=== PATIENT | male | born 1945 ===

== ENCOUNTER 2018-06-26 08:37 | Day surgery (SDC) | payer MEDICARE, OTHER ==
[2018-06-25 14:08] VITALS: BMI 20.5
[2018-06-26] MEDS ORDERED: ceFAZolin IV 2 gm in Dextrose 2 GM/50 ML BAG IVPB SCH (10:00)
[2018-06-26] MEDS ORDERED: Lactated Ringer's 500 ML IV ONE (10:55)
[2018-06-26] MEDS ORDERED: Lactated Ringer's 500 ML IV SCH (11:45)
[2018-06-26 11:48] VITALS: TEMP 99.1
[2018-06-26] MEDS ORDERED: ceFAZolin 2 GM in Sodium Chloride 0.9% 100 ML IVPB ONE (12:00)
[2018-06-26 12:34] VITALS: O2SAT 97
[2018-06-26 13:09] VITALS: BP 118/61; PULSE 80; RESP 18
== END 2018-06-26 13:03 ==
LOC: C.ENDO 08:37
PROVIDERS: ATTEND Internal Medicine Gastroenterology
DX: R13.10 Dysphagia, unspecified (principal); R63.4 Abnormal weight loss; E11.9 Type 2 diabetes mellitus without complications; I11.0 Hypertensive heart disease with heart failure; I50.9 Heart failure, unspecified; J44.9 Chronic obstructive pulmonary disease, unspecified
CPT/HCPCS: 43246; 82948; J0690; J7120

== ENCOUNTER 2018-09-17 10:15 | Inpatient (IN) | payer MEDICARE, OTHER ==
[2018-09-17 10:15] VITALS: BMI 19.7
[2018-09-17 11:02] LABS: BASO % 0.3 % (0.0-2.0); EOS # 0.1 K/uL (0.0-0.7); EOS % 0.4 % (0.0-4.0); LYMPH # 0.2 K/uL (1.0-4.3); LYMPH % 1.4 % (20.0-40.0); MEAN CORPUSCULAR HEMOGLOBIN 26.7 pg (27.0-31.0); MEAN CORPUSCULAR HGB CONC 33.4 g/dL (33.0-37.0); MEAN PLATELET VOLUME 7.3 fL (7.2-11.7); MONO # 0.9 K/uL (0.0-0.8); MONO % 5.9 % (0.0-10.0); NEUT # 13.3 K/uL (1.8-7.0); RBC 3.48 Mil/uL (4.40-5.90); RED CELL DISTRIBUTION WIDTH 14.3 % (11.5-14.5); WHITE BLOOD COUNT 14.4 K/uL (4.8-10.8)
[2018-09-17 11:03] LABS: HEMOGLOBIN 9.3 g/dL (12.0-18.0)
[2018-09-17 11:04] LABS: PLATELET COUNT 258 K/uL (130-400)
[2018-09-17 11:11] LABS: INR 1.4; PROTHROMBIN TIME 14.8 SECONDS (9.7-12.2)
[2018-09-17 11:15] LABS: ALB/GLOB RATIO 0.9 (1.0-2.1); ALBUMIN 3.4 g/dL (3.5-5.0); ALT/SGPT 21 U/L (21-72); AST/SGOT 22 U/L (17-59); BLOOD UREA NITROGEN 28 mg/dL (9-20); CALCIUM 9.3 mg/dl (8.6-10.4); GFR NON-AFRICAN AMERICAN 46
[2018-09-17 11:26] LABS: CK-MB 1.01 ng/mL (0.0-3.38)
[2018-09-17 11:33] LABS: BANDS 1 % (0-2); LYMPHOCYTE 1 % (20-40); MONOCYTE 7 % (0-10); NEUTROPHIL 91 % (50-75); TOTAL CELLS COUNTED 100
[2018-09-17 11:34] LABS: HYPOCHROMIC SLIGHT; PLATELET ESTIMATE NORMAL (NORMAL)
--- NOTE | 2018-09-17 11:48 | CT ---
Date of service: 09/17/2018 PROCEDURE: CT HEAD WITHOUT CONTRAST. HISTORY: SYNCOPE/UNRESPONSIVE COMPARISON: None available. TECHNIQUE: Axial computed tomography images were obtained through the head/brain without intravenous contrast. Radiation dose: Total exam DLP = 1094.17 mGy-cm. This CT exam was performed using one or more of the following dose reduction techniques: Automated exposure control, adjustment of the mA and/or kV according to patient size, and/or use of iterative reconstruction technique. FINDINGS: HEMORRHAGE: No intracranial hemorrhage. BRAIN: Diffuse atrophy with prominence of the ventricles and sulci noted. No mass effect or edema. Dense intracranial atherosclerosis. Scattered chronic appearing bilateral basal ganglia type lacunar infarcts. Scattered periventricular and subcortical white matter hypodensities, which are nonspecific, but often seen with chronic microvascular ischemic disease. Please note that MRI with diffusion imaging is more sensitive in the detection of acute ischemic event. VENTRICLES: No hydrocephalus. CALVARIUM: Unremarkable. PARANASAL SINUSES: Unremarkable as visualized. No significant inflammatory changes. MASTOID AIR CELLS: Opacification of the right mastoid air cells. The left mastoid air cells appear clear. OTHER FINDINGS: None. IMPRESSION: Generalized atrophy. Nonspecific white matter changes. Chronic appearing bilateral lacunar type infarcts. Opacification right mastoid air cells; correlate clinically for mastoiditis.
--- NOTE | 2018-09-17 12:02 | C.PDOC ---
History Of Present Illness Patient sent from [place] for evaluation, was apparently found on the floor in the bathroom cyanotic and not breathing. Nurse apparently started bagging patient, and did suctions his trach and patient began breathing again. Patient has PMhx of laryngeal CA, tracheostomy, PEG tube placement, COPD, CHF, HTN, pneumonia. Patient does not remember what happened to him this morning. He is c/o abdominal pain located at PEG site; as per son PEG has been in for approx 1 month and patient has been c/o pain there recently. - HPI Time Seen by Provider: 09/17/18 10:28 Chief Complaint (Nursing): Trauma History Per: Patient, Family History/Exam Limitations: other (nonverbal) Past Medical History Reviewed: Historical Data, Nursing Documentation, Vital Signs Vital Signs: Last Vital Signs Temp 98 F 09/17/18 10:24 Pulse 75 09/17/18 11:49 Resp 14 09/17/18 11:49 BP 113/61 09/17/18 11:49 Pulse Ox 100 09/17/18 11:49 Primary Care Provider: Ada Harry R - Medical History PMH: Anxiety, CHF, COPD, Depression, Emphysema, Fractures (left rib fx in december 2017), HTN, Pneumonia - [facility] Procedures ASSISTANCE WITH RESPIRATORY VENTILATION, <24 HRS, CPAP (04/07/18) BYPASS TRACHEA TO CUTANEOUS WITH TRACH DEV, OPEN APPROACH (04/07/18) FLUOROSCOPY OF MOUTH/OROPHARYNX USING OTHER CONTRAST (04/07/18) Family History: States: No Known Family Hx - Social History Hx Alcohol Use: No Hx Substance Use: No - Immunization History Hx Tetanus Toxoid Vaccination: No Hx Influenza Vaccination: No Hx Pneumococcal Vaccination: No Review Of Systems Constitutional: Negative for: Fever, Chills Cardiovascular: Negative for: Chest Pain, Palpitations Respiratory: Positive for: Other (cyanosis). Negative for: Cough, Shortness of Breath Gastrointestinal: Positive for: Abdominal Pain. Negative for: Nausea, Vomiting Neurological: Negative for: Headache, Dizziness Physical Exam - Physical Exam Appears: Non-toxic, Chronically Ill Skin: Warm, Dry, Pale Head: Normacephalic Eye(s): bilateral: Normal Inspection, PERRL, EOMI Oral Mucosa: Moist Neck: Other (tracheotomy tube, no discharge/mucus plug noted) Cardiovascular: Rhythm Regular Respiratory: No Accessory Muscle Use, No Rales, No Rhonchi, No Wheezing, Other (coarse breath sounds B/L ) Gastrointestinal/Abdominal: Bowel Sounds, Soft, Tenderness ((+) TTP around left sided PEG), No Distention, No Guarding, No Rebound Extremity: Normal ROM, No Pedal Edema, No Calf Tenderness Neurological/Psych: Oriented x3 ED Course And Treatment - Laboratory Results Result Diagrams: 09/19/18 07:32 09/19/18 07:32 Lab Results: PT 14.8 SECONDS (9.7-12.2) H 09/17/18 10:58 INR 1.4 09/17/18 10:58 APTT 31.0 SECONDS (21-34) 09/17/18 10:58 Troponin I < 0.0120 ng/mL (0.00-0.120) 09/17/18 10:58 Total Bilirubin 0.7 mg/dL (0.2-1.3) 09/17/18 10:58 AST 22 U/L (17-59) 09/17/18 10:58 ALT 21 U/L (21-72) D 09/17/18 10:58 Alkaline Phosphatase 167 U/L (38-126) H 09/17/18 10:58 Total Protein 7.0 g/dL (6.3-8.3) 09/17/18 10:58 Albumin 3.4 g/dL (3.5-5.0) L 09/17/18 10:58 Globulin 3.6 gm/dL (2.2-3.9) 09/17/18 10:58 Albumin/Globulin Ratio 0.9 (1.0-2.1) L 09/17/18 10:58 ECG: Interpreted By Me, Viewed By Me (NSR 85 bpm, normal axis, RBBB, no acute ST changes) ECG Interpretation: No Acute Changes O2 Sat by Pulse Oximetry: 100 (RA) Pulse Ox Interpretation: Normal - Radiology CXR: Interpreted by Me, Viewed By Me CXR Interpretation: Yes: No Acute Disease, Other ((+) tracheostomy). No: Infiltrates - CT Scan/US CT HEAD Other Rad Studies (CT/US): Read By Radiologist, Radiology Report Reviewed CT/US Interpretation: Accession No. : [id number]. Patient Name / ID : PAULA CLARKE / [id number]. Exam Date : 09/17/2018 11:22:49 ( Approved ). Study Comment : Sex / Age : M / 72Y. Creator : Johanny Leigh. Dictator : Lorena Church MD. Art Museum Docent : Mixing Roll Operator : Lorena Church MD. Approver2 : Report Date : 09/17/2018 11:31:36. My Comment : . Date of service: 09/17/2018. PROCEDURE: CT HEAD WITHOUT CONTRAST. HISTORY: SYNCOPE/UNRESPONSIVE. COMPARISON: None available. TECHNIQUE: Axial computed tomography images were obtained through the head/brain without intravenous con trast. Radiation dose: Total exam DLP = 1094.17 mGy-cm. This CT exam was performed using one or more of the following dose reduction techniques: Automated exposure control, adjustment of the mA and/or kV according to patient size, and/or use of iterative reconstruction technique. FINDINGS: HEMORRHAGE: No intracranial hemorrhage. BRAIN: Diffuse atrophy with prominence of the ventricles and sulci noted. No mass effect or edema. Dense intracranial atherosclerosis. Scattered chronic appearing bilateral basal ganglia type lacunar infarcts. Scattered periventricular and subcortical white matter hypodensities, which are nonspecific, but often seen with chronic microvascular ischemic disease. Please note that MRI with diffusion imaging is more sensitive in the detection of acute ischemic event. VENTRICLES: No hydrocephalus. CALVARIUM: Unremarkable. PARANASAL SINUSES: Unremarkable as visualized. No significant inflammatory changes. MASTOID AIR CELLS: Opacification of the ri ght mastoid air cells. The left mastoid air cells appear clear. OTHER FINDINGS: None. IMPRESSION: Generalized atrophy. Nonspecific white matter changes. Chronic appearing bilateral lacunar type infarcts. Opacification right mastoid air cells; correlate clinically for mastoiditis. Progress Note: Blood work, EKG, CXR, UA, CT head ordered and reviewed. Patient given IV NS bolus, IV zosyn (for possible aspiration PNA). - Physician Consult Information Physician Contacted: Jose Harry Outcome Of Conversation: Discussed patient with Dr. Harry, agrees with admissioj to his service for collapse at [place] - mucus plus vs syncope, possible aspiration PNA, leukocytosis, laryngeal CA, abdominal pain. He will follow CT abd/pelvis. Disposition - Disposition Disposition: HOSPITALIZED Disposition Time: 12:21 Condition: STABLE - Clinical Impression Clinical Impression: Abdominal pain, Laryngeal cancer, Collapse, Leukocytosis, Aspiration pneumonia Decision To Admit - Pt Status Changed To: Hospital Disposition Of: Inpatient - Admit Certification Admit to Inpatient:: After my assessment, the patient will require hospitalization for at least two midnights. This is because of the severity of symptoms shown, intensity of services needed, and/or the medical risk in this patient being treated as an outpatient. - InPatient: Physician Admission Certification: I certify that this patient requires 2 or more midnights of care for the following reason:: see notes - . Bed Request Type: Telemetry Admitting Physician: Jose Harry Patient Diagnosis: Leukocytosis, Laryngeal cancer, Abdominal pain, Collapse, Aspiration pneumonia
[2018-09-17] MEDS ORDERED: Piperacillin/Tazobact 3.375 gm 100 ML IV STA (12:18)
[2018-09-17] MEDS ORDERED: Iohexol 240 (50 ml) PO STA (12:23)
[2018-09-17] MEDS ORDERED: Sodium Chloride 0.9% 500 ML IV ONE (12:23)
[2018-09-17] MEDS ORDERED: Iohexol 240 (50 ml) ONE (13:01)
[2018-09-17] MEDS ORDERED: Piperacillin/Tazobact 3.375 gm 100 ML IVPB ONE (13:02)
--- NOTE | 2018-09-17 15:48 | RAD ---
Date of service: 09/17/2018 PROCEDURE: CHEST RADIOGRAPH, 1 VIEW HISTORY: POSSIBLE SYNCOPE COMPARISON: None available. FINDINGS: LUNGS: Clear. PLEURA: No pneumothorax or pleural fluid seen. CARDIOVASCULAR: Atherosclerotic calcifications identified primarily aortic arch. No radiographic findings to suggest acute or significant cardiovascular disease. OSSEOUS STRUCTURES: No significant abnormalities. VISUALIZED UPPER ABDOMEN: Normal. OTHER FINDINGS: Satisfactory position of tracheostomy device. IMPRESSION: No active disease.
[2018-09-17] MEDS ORDERED: Acetaminophen 650mg/20.3ml solution UD GT PRN (15:51)
[2018-09-17] MEDS ORDERED: Albuterol-Ipratrop 3 mg / 0.5 (3 ml) UD IH SCH (16:00)
--- NOTE | 2018-09-17 16:17 | CP.PCM.CON ---
<Nereida Tang - Last Filed: 09/17/18 18:01> History of Present Illness - History of Present Illness History of Present Illness: GI Fellow PGY5 Consult Note 72 year old male with medical history of COPD, CHF, HTN, DM, GERD, Laryngeal Carcinoma diagnosed 10 months ago s/p tracheostomy on chemoradiation therapy. Pt was initially seen by GI in the office 05/2018 for PEG placement due to poor po intake, dysphagia and weight loss. Pt was also found to have a nodular liver on Abd US and PET scan. No history of known cirrhosis or liver disease per pt, positive history of heavy alcohol abuse in the past. Denied jaundice, encephalopathy, ascites. Pt has lost unintentional 25lbs over 6months. Pt had a barium swallow evaluation 03/2018 with no aspiration at that time. Pt had a PEG placed 06/2018 with no complication. [facility], cyanotic with initiation of bag ventilation and started breathing. On presentation pt reports severe abdominal pain in LUQ. Per pt's family pt recently had pain medication increased and has chronic pain in left side due to rib fracture 1 yr ago after being hypoglycemic. Per pt's family he would have mild discomfort around PEG site but no issues with TF or severe abdominal pain. At the time of evaluation, PEG was a little hard to flush with resistance but no pain at site of peg, mostly LUQ around rib area. ROS: A 12pt ROS was negative except as above PmHx: As stated above PsHx: PEG, trach SHx: former smoker, drinker FH: Denies cancer Past Patient History - Infectious Disease Hx of Infectious Diseases: None - Past Medical History & Family History Past Medical History?: Yes - Past Social History Smoking Status: Current Some Days Smoker - CARDIAC Hx Cardiac Disorders: Yes Hx Congestive Heart Failure: Yes Hx Hypertension: Yes - PULMONARY Hx Respiratory Disorders: Yes Hx Chronic Obstructive Pulmonary Disease (COPD): Yes Hx Emphysema: Yes Hx Pneumonia: Yes - NEUROLOGICAL Hx Neurological Disorder: No Hx Seizures: No Hx Transient Ischemic Attacks (TIA): No - HEENT Hx HEENT Problems: Yes - RENAL Hx Chronic Kidney Disease: No - ENDOCRINE/METABOLIC Hx Endocrine Disorders: Yes Hx Diabetes Mellitus Type 1: Yes - HEMATOLOGICAL/ONCOLOGICAL Hx Cancer: Yes (LARYNX) Other/Comment: + Trach - INTEGUMENTARY Hx Dermatological Problems: No - MUSCULOSKELETAL/RHEUMATOLOGICAL Hx Musculoskeletal Disorders: Yes Hx Falls: Yes Hx Fractures: Yes (left rib fx in december 2017) - GASTROINTESTINAL Hx Gastrointestinal Disorders: Yes Hx Gastroesophageal Reflux: Yes - GENITOURINARY/GYNECOLOGICAL Hx Genitourinary Disorders: No - PSYCHIATRIC Hx Psychophysiologic Disorder: Yes Hx Anxiety: Yes Hx Depression: Yes Hx Substance Use: No - SURGICAL HISTORY Hx Surgeries: Yes Other/Comment: TRACHEOTOMY - ANESTHESIA Hx Anesthesia: Yes Hx Anesthesia Reactions: No Hx Malignant Hyperthermia: No Meds Allergies/Adverse Reactions: Allergies Allergy/AdvReac Type Severity Reaction Status Date / Time No Known Allergies Allergy Verified 06/26/18 09:51 - Medications Medications: Current Medications Acetaminophen (Tylenol 650mg/20.3ml Solution Ud) 650 mg GT Q6 PRN PRN Reason: Temperature Albuterol/Ipratropium (Duoneb 3 Mg/0.5 Mg (3 Ml) Ud) 3 ml IH Q6H DEMETRIUS Piperacillin Sod/Tazobactam Sod (Zosyn 3.375 Gm Iv Premix) 3.375 gm in 50 mls @ 100 mls/hr IVPB Q8 DEMETRIUS; Protocol Insulin Aspart (Novolog) 0 unit SC Q6 DEMETRIUS; Protocol Trazodone HCl (Desyrel) 25 mg PO HS DEMETRIUS Physical Exam - Constitutional Appears: Non-toxic, In Acute Distress, Cachectic, Chronically Ill - Head Exam Head Exam: ATRAUMATIC, NORMAL INSPECTION, NORMOCEPHALIC - Eye Exam Eye Exam: EOMI, Normal appearance, PERRL - ENT Exam ENT Exam: Mucous Membranes Dry Additional comments: Trach - Neck Exam Neck exam: Positive for: Full Rom - Respiratory Exam Respiratory Exam: Clear to Auscultation Bilateral, NORMAL BREATHING PATTERN - Cardiovascular Exam Cardiovascular Exam: REGULAR RHYTHM, RRR, +S1, +S2 - GI/Abdominal Exam GI & Abdominal Exam: Normal Bowel Sounds, Soft. absent: Distended, Firm, Guarding, Organomegaly Additional comments: PEG site clean, dry, tact no pain around peg PEG flushed with resistance - Rectal Exam Rectal Exam: Deferred - Extremities Exam Extremities exam: Positive for: full ROM, normal inspection - Neurological Exam Neurological exam: Alert, Oriented x3 - Psychiatric Exam Psychiatric exam: Anxious - Skin Skin Exam: Dry, Intact, Normal Color, Warm Results - Vital Signs Recent Vital Signs: Last Vital Signs Temp 97.6 F 09/17/18 12:45 Pulse 80 09/17/18 13:07 Resp 18 09/17/18 14:20 BP 106/56 L 09/17/18 13:07 Pulse Ox 100 09/17/18 13:07 - Labs Result Diagrams: 09/17/18 10:58 09/17/18 10:58 Labs: Laboratory Results - last 24 hr 09/17/18 09/17/18 09/17/18 10:58 10:58 10:58 WBC 14.4 H RBC 3.48 L Hgb 9.3 L D Hct 27.8 L MCV 80.0 D MCH 26.7 L MCHC 33.4 RDW 14.3 Plt Count 258 D MPV 7.3 Neut % (Auto) 92.0 H Lymph % (Auto) 1.4 L Gregg % (Auto) 5.9 Eos % (Auto) 0.4 Baso % (Auto) 0.3 Neut # (Auto) 13.3 H Lymph # (Auto) 0.2 L Gregg # (Auto) 0.9 H Eos # (Auto) 0.1 Baso # (Auto) 0.0 Neutrophils % (Manual) 91 H Band Neutrophils % 1 Lymphocytes % (Manual) 1 L Monocytes % (Manual) 7 Platelet Estimate Normal Hypochromasia (manual) Slight PT 14.8 H INR 1.4 APTT 31.0 Sodium 133 Potassium 3.8 Chloride 90 L Carbon Dioxide 30 Anion Gap 17 BUN 28 H Creatinine 1.5 Est GFR ( Amer) 56 Est GFR (Non-Af Amer) 46 POC Glucose (mg/dL) Random Glucose 265 H D Calcium 9.3 Total Bilirubin 0.7 AST 22 ALT 21 D Alkaline Phosphatase 167 H Total Creatine Kinase 26 L CK-MB (Mass) 1.01 Troponin I < 0.0120 Total Protein 7.0 Albumin 3.4 L Globulin 3.6 Albumin/Globulin Ratio 0.9 L 09/17/18 11:03 WBC RBC Hgb Hct MCV MCH MCHC RDW Plt Count MPV Neut % (Auto) Lymph % (Auto) Gregg % (Auto) Eos % (Auto) Baso % (Auto) Neut # (Auto) Lymph # (Auto) Gregg # (Auto) Eos # (Auto) Baso # (Auto) Neutrophils % (Manual) Band Neutrophils % Lymphocytes % (Manual) Monocytes % (Manual) Platelet Estimate Hypochromasia (manual) PT INR APTT Sodium Potassium Chloride Carbon Dioxide Anion Gap BUN Creatinine Est GFR ( Amer) Est GFR (Non-Af Amer) POC Glucose (mg/dL) 273 H Random Glucose Calcium Total Bilirubin AST ALT Alkaline Phosphatase Total Creatine Kinase CK-MB (Mass) Troponin I Total Protein Albumin Globulin Albumin/Globulin Ratio Assessment & Plan - Assessment and Plan (Free Text) Assessment: 1. Syncopal episode/cyanotic 2. Abdominal Pain 3. Hx of rib fractures 4. Hx of Laryngeal Cancer s/p PEG Plan: -Continue supportive care -PEG site with no infection notes, unclear PEG flush met with resistance -Will do CT A/P to r/o GI pathology and confirm location of PEG tube, concern if dislodged during fall -Hold anything via PEG, no TF -NPO for except water/meds, until CT imaging reviewed -Will continue to follow closely <Jorge Shepard - Last Filed: 09/17/18 18:33> Meds - Medications Medications: Current Medications Acetaminophen (Tylenol 650mg/20.3ml Solution Ud) 650 mg GT Q6 PRN PRN Reason: Temperature Albuterol/Ipratropium (Duoneb 3 Mg/0.5 Mg (3 Ml) Ud) 3 ml IH Q6H DEMETRIUS Piperacillin Sod/Tazobactam Sod (Zosyn 3.375 Gm Iv Premix) 3.375 gm in 50 mls @ 100 mls/hr IVPB Q8 DEMETRIUS; Protocol Insulin Aspart (Novolog) 0 unit SC Q6 DEMETRIUS; Protocol Ondansetron HCl (Zofran Inj) 4 mg IVP BID PRN PRN Reason: Nausea/Vomiting Pneumococcal Polyvalent Vaccine (Pneumovax 23 Vaccine) 0.5 ml IM .ONCE ONE Stop: 09/19/18 14:01 Trazodone HCl (Desyrel) 25 mg PO HS DEMETRIUS Results - Vital Signs Recent Vital Signs: Last Vital Signs Temp 97.4 F L 09/17/18 17:01 Pulse 77 09/17/18 17:01 Resp 20 09/17/18 17:01 BP 113/65 09/17/18 17:01 Pulse Ox 95 09/17/18 17:01 - Labs Result Diagrams: 09/17/18 10:58 09/17/18 10:58 Labs: Laboratory Results - last 24 hr 09/17/18 09/17/18 09/17/18 10:58 10:58 10:58 WBC 14.4 H RBC 3.48 L Hgb 9.3 L D Hct 27.8 L MCV 80.0 D MCH 26.7 L MCHC 33.4 RDW 14.3 Plt Count 258 D MPV 7.3 Neut % (Auto) 92.0 H Lymph % (Auto) 1.4 L Gregg % (Auto) 5.9 Eos % (Auto) 0.4 Baso % (Auto) 0.3 Neut # (Auto) 13.3 H Lymph # (Auto) 0.2 L Gregg # (Auto) 0.9 H Eos # (Auto) 0.1 Baso # (Auto) 0.0 Neutrophils % (Manual) 91 H Band Neutrophils % 1 Lymphocytes % (Manual) 1 L Monocytes % (Manual) 7 Platelet Estimate Normal Hypochromasia (manual) Slight PT 14.8 H INR 1.4 APTT 31.0 Sodium 133 Potassium 3.8 Chloride 90 L Carbon Dioxide 30 Anion Gap 17 BUN 28 H Creatinine 1.5 Est GFR ( Amer) 56 Est GFR (Non-Af Amer) 46 POC Glucose (mg/dL) Random Glucose 265 H D Calcium 9.3 Total Bilirubin 0.7 AST 22 ALT 21 D Alkaline Phosphatase 167 H Total Creatine Kinase 26 L CK-MB (Mass) 1.01 Troponin I < 0.0120 Total Protein 7.0 Albumin 3.4 L Globulin 3.6 Albumin/Globulin Ratio 0.9 L 09/17/18 11:03 WBC RBC Hgb Hct MCV MCH MCHC RDW Plt Count MPV Neut % (Auto) Lymph % (Auto) Gregg % (Auto) Eos % (Auto) Baso % (Auto) Neut # (Auto) Lymph # (Auto) Gregg # (Auto) Eos # (Auto) Baso # (Auto) Neutrophils % (Manual) Band Neutrophils % Lymphocytes % (Manual) Monocytes % (Manual) Platelet Estimate Hypochromasia (manual) PT INR APTT Sodium Potassium Chloride Carbon Dioxide Anion Gap BUN Creatinine Est GFR ( Amer) Est GFR (Non-Af Amer) POC Glucose (mg/dL) 273 H Random Glucose Calcium Total Bilirubin AST ALT Alkaline Phosphatase Total Creatine Kinase CK-MB (Mass) Troponin I Total Protein Albumin Globulin Albumin/Globulin Ratio Attending/Attestation - Attestation I have personally seen and examined this patient.: Yes I have fully participated in the care of the patient.: Yes I have reviewed all pertinent clinical information: Yes Notes (Text): 09/17/18 18:28 I have seen and examined patient with GI fellow. Agree with above documentation with the following additions. In brief, this is a 72 year old male with history of DM, HTN, CHF, COPD, laryngeal carcinoma s/p tracheostomy and PEG placement in June 2018 who is sent from [facility] after being found on bathroom floor in respiratory distress. Patient reports falling but cannot recall specific events leading to fall. GI called for evaluation of left sided abdominal pain. He describes sharp, 8/10 intensity, LUQ pain beneath ribs that is worse with movement or deep breathing. He denies nausea, vomiting, fever/chills. Prior to this, gastrostomy tube was functioning without difficulty. He does report recent constipation, no bowel movement in past 4 days as per patient. DM/HTN CHF COPD Laryngeal cancer s/p trach and peg Syncope Abdominal pain - NPO - Continue with antibiotic therapy - PEG site examined without features of cellulitis, though free water flushes are met with mild resistance - Abdominal pain possibly related to traumatic fall at [facility], ?rib injury - Obtain CT imaging of abdomen/pelvis to rule out feeding tube dislodgement following fall - Will continue to monitor patient clinical course
[2018-09-17] MEDS: (Novolog) Insulin Aspart, Recombinant 100 u/ml 10 ml vial SC SCH (19:31)
--- NOTE | 2018-09-17 20:34 | CP.PCM.HP ---
Present on Admission - Present on Admission Any Indicators Present on Admission: No Past Patient History - Infectious Disease Hx of Infectious Diseases: None - Past Medical History & Family History Past Medical History?: Yes - Past Social History Smoking Status: Current Some Days Smoker - CARDIAC Hx Cardiac Disorders: Yes Hx Congestive Heart Failure: Yes Hx Hypertension: Yes - PULMONARY Hx Respiratory Disorders: Yes Hx Chronic Obstructive Pulmonary Disease (COPD): Yes Hx Emphysema: Yes Hx Pneumonia: Yes - NEUROLOGICAL Hx Neurological Disorder: No Hx Seizures: No Hx Transient Ischemic Attacks (TIA): No - HEENT Hx HEENT Problems: Yes - RENAL Hx Chronic Kidney Disease: No - ENDOCRINE/METABOLIC Hx Endocrine Disorders: Yes Hx Diabetes Mellitus Type 1: Yes - HEMATOLOGICAL/ONCOLOGICAL Hx Cancer: Yes (LARYNX) Other/Comment: + Trach - INTEGUMENTARY Hx Dermatological Problems: No - MUSCULOSKELETAL/RHEUMATOLOGICAL Hx Musculoskeletal Disorders: Yes Hx Falls: Yes Hx Fractures: Yes (left rib fx in december 2017) - GASTROINTESTINAL Hx Gastrointestinal Disorders: Yes Hx Gastroesophageal Reflux: Yes - GENITOURINARY/GYNECOLOGICAL Hx Genitourinary Disorders: No - PSYCHIATRIC Hx Psychophysiologic Disorder: Yes Hx Anxiety: Yes Hx Depression: Yes Hx Substance Use: No - SURGICAL HISTORY Hx Surgeries: Yes Other/Comment: TRACHEOTOMY - ANESTHESIA Hx Anesthesia: Yes Hx Anesthesia Reactions: No Hx Malignant Hyperthermia: No Meds Allergies/Adverse Reactions: Allergies Allergy/AdvReac Type Severity Reaction Status Date / Time No Known Allergies Allergy Verified 06/26/18 09:51 Physical Exam - Constitutional Appears: Well - Head Exam Head Exam: ATRAUMATIC, NORMAL INSPECTION, NORMOCEPHALIC Additional comments: tracheostomy present getting oxygen - Eye Exam Eye Exam: EOMI, Normal appearance, PERRL Pupil Exam: NORMAL ACCOMODATION, PERRL - ENT Exam ENT Exam: Mucous Membranes Moist, Normal Exam - Neck Exam Neck exam: Positive for: Normal Inspection - Respiratory Exam Respiratory Exam: Decreased Breath Sounds - Cardiovascular Exam Cardiovascular Exam: REGULAR RHYTHM, +S1, +S2 - GI/Abdominal Exam GI & Abdominal Exam: Diminished Bowel Sounds, Soft - Rectal Exam Rectal Exam: Deferred - Neurological Exam Neurological exam: Oriented x3 Results - Vital Signs Recent Vital Signs: Last Vital Signs Temp 97.4 F L 09/17/18 17:01 Pulse 77 09/17/18 17:01 Resp 20 09/17/18 17:01 BP 113/65 09/17/18 17:01 Pulse Ox 95 09/17/18 17:01 - Labs Result Diagrams: 09/22/18 11:38 09/22/18 11:38 Labs: Laboratory Results - last 24 hr 09/17/18 09/17/18 09/17/18 10:58 10:58 10:58 WBC 14.4 H RBC 3.48 L Hgb 9.3 L D Hct 27.8 L MCV 80.0 D MCH 26.7 L MCHC 33.4 RDW 14.3 Plt Count 258 D MPV 7.3 Neut % (Auto) 92.0 H Lymph % (Auto) 1.4 L [place] % (Auto) 5.9 Eos % (Auto) 0.4 Baso % (Auto) 0.3 Neut # (Auto) 13.3 H Lymph # (Auto) 0.2 L [place] # (Auto) 0.9 H Eos # (Auto) 0.1 Baso # (Auto) 0.0 Neutrophils % (Manual) 91 H Band Neutrophils % 1 Lymphocytes % (Manual) 1 L Monocytes % (Manual) 7 Platelet Estimate Normal Hypochromasia (manual) Slight PT 14.8 H INR 1.4 APTT 31.0 Sodium 133 Potassium 3.8 Chloride 90 L Carbon Dioxide 30 Anion Gap 17 BUN 28 H Creatinine 1.5 Est GFR ( Amer) 56 Est GFR (Non-Af Amer) 46 POC Glucose (mg/dL) Random Glucose 265 H D Calcium 9.3 Total Bilirubin 0.7 AST 22 ALT 21 D Alkaline Phosphatase 167 H Total Creatine Kinase 26 L CK-MB (Mass) 1.01 Troponin I < 0.0120 Total Protein 7.0 Albumin 3.4 L Globulin 3.6 Albumin/Globulin Ratio 0.9 L 09/17/18 11:03 WBC RBC Hgb Hct MCV MCH MCHC RDW Plt Count MPV Neut % (Auto) Lymph % (Auto) [place] % (Auto) Eos % (Auto) Baso % (Auto) Neut # (Auto) Lymph # (Auto) [place] # (Auto) Eos # (Auto) Baso # (Auto) Neutrophils % (Manual) Band Neutrophils % Lymphocytes % (Manual) Monocytes % (Manual) Platelet Estimate Hypochromasia (manual) PT INR APTT Sodium Potassium Chloride Carbon Dioxide Anion Gap BUN Creatinine Est GFR ( Amer) Est GFR (Non-Af Amer) POC Glucose (mg/dL) 273 H Random Glucose Calcium Total Bilirubin AST ALT Alkaline Phosphatase Total Creatine Kinase CK-MB (Mass) Troponin I Total Protein Albumin Globulin Albumin/Globulin Ratio
[2018-09-17] MEDS: Piperacill/Tazo 3.375gm in Dex 3.375 GM/50 ML BAG IVPB SCH (22:29)
[2018-09-17] MEDS: traZODone 25 mg Tab PO SCH (22:29)
[2018-09-18 00:49] LABS: SQUAMOUS EPITHIAL < 1 /hpf (0-5); URINE BILIRUBIN NEGATIVE (NEGATIVE); URINE BLOOD 2+ (NEGATIVE); URINE COLOR Yellow (YELLOW); URINE GLUCOSE (UA) 1+ mg/dL (Normal); URINE HYALINE CAST 0-2 /lpf (0-2); URINE LEUKOCYTE ESTERASE NEG Leu/uL (Negative); URINE PROTEIN NEGATIVE (NEGATIVE); URINE UROBILINOGEN NORMAL mg/dL (0.2-1.0)
[2018-09-18] MEDS: (Novolog) Insulin Aspart, Recombinant 100 u/ml 10 ml vial SC SCH ×4 (00:51→17:42)
[2018-09-18 01:08] LABS: URINE CLARITY Hazy (Clear)
[2018-09-18] MEDS: Albuterol-Ipratrop 3 mg / 0.5 (3 ml) UD IH SCH ×4 (01:41→20:13)
[2018-09-18] MEDS: Piperacill/Tazo 3.375gm in Dex 3.375 GM/50 ML BAG IVPB SCH ×3 (06:13→21:18)
--- NOTE | 2018-09-18 09:27 | CT ---
Date of service: 09/17/2018 PROCEDURE: CT Abdomen and Pelvis without intravenous contrast HISTORY: abdominal pain, peg COMPARISON: None. TECHNIQUE: Without contrast.. Contrast dose: 0 Radiation dose: Total exam DLP = 898.83 mGy-cm. This CT exam was performed using one or more of the following dose reduction techniques: Automated exposure control, adjustment of the mA and/or kV according to patient size, and/or use of iterative reconstruction technique. FINDINGS: LOWER THORAX: Bilateral lower lobe subsegmental atelectasis. No pleural effusion. Mild cardiomegaly. Coronary arterial calcification. LIVER: Nodular contour consistent with hepatic cirrhosis. Normal attenuation. No mass. No biliary ductal dilatation. GALLBLADDER AND BILE DUCTS: Unremarkable. PANCREAS: Unremarkable. No gross lesion or ductal dilatation. SPLEEN: Unremarkable. ADRENALS: Unremarkable. No mass. KIDNEYS AND URETERS: 3 mm right lower pole nonobstructing calculus. No hydronephrosis. No renal mass. VASCULATURE: No evidence of abdominal aortic aneurysm. There is atherosclerotic calcification of the abdominal aorta. BOWEL: A percutaneous gastrostomy tube is noted the balloon is inflated within the abdominal wall and not within the gastric lumen. Mild mural thickening of the gastric antrum common nonspecific. No bowel obstruction. Mild circumferential mural thickening of the rectosigmoid colon, nonspecific. Rule out colitis. Correlate with clinical evaluation. APPENDIX: Not positively identified. No secondary findings. PERITONEUM: Trace ascites. No pneumoperitoneum. LYMPH NODES: Unremarkable. No enlarged lymph nodes. BLADDER: Unremarkable. REPRODUCTIVE: Normal prostate BONES: No acute fracture. OTHER FINDINGS: None. IMPRESSION: Percutaneous gastrostomy balloon is seen within the anterior abdominal wall, outside the gastric lumen. Replacement or repositioning is advised. Mural thickening of the rectosigmoid colon. Nonspecific. Rule out colitis/proctitis. Hepatic cirrhosis. Bilateral lower lobe subsegmental atelectasis. Cardiomegaly. Coronary arterial calcification. The preliminary findings for this examination were reported by [facility] at 7:34 p.m. on 09/17/2018. There is concurrence of this report with the preliminary findings.
--- NOTE | 2018-09-18 10:06 | CP.PCM.PN ---
<ClydeNereida - Last Filed: 09/18/18 10:08> Subjective - Date & Time of Evaluation Date of Evaluation: 09/18/18 Time of Evaluation: 07:00 - Subjective Subjective: GI Fellow PGY5 Progress Note Pt seen and evaluated at bedside, pt still complaining of LUQ. No other issues overnight per nursing. ROS: A 12pt ROS was negative except as above Objective - Vital Signs/Intake and Output Vital Signs (last 24 hours): Temp Pulse Resp BP Pulse Ox 98.2 F 76 20 120/64 94 L 09/18/18 08:18 09/18/18 08:18 09/18/18 08:18 09/18/18 08:18 09/18/18 08:18 Intake and Output: 09/18/18 09/18/18 06:59 18:59 Output Total 550 Balance -550 - Medications Medications: Current Medications Acetaminophen (Tylenol 650mg/20.3ml Solution Ud) 650 mg GT Q6 PRN PRN Reason: Temperature Albuterol/Ipratropium (Duoneb 3 Mg/0.5 Mg (3 Ml) Ud) 3 ml IH RQ6 [facility] Last Admin: 09/18/18 07:58 Dose: 3 ml Heparin Sodium (Porcine) (Heparin) 5,000 units SC Q12 [facility] Piperacillin Sod/Tazobactam Sod (Zosyn 3.375 Gm Iv Premix) 3.375 gm in 50 mls @ 100 mls/hr IVPB Q8 [facility]; Protocol Last Admin: 09/18/18 06:13 Dose: 100 mls/hr Insulin Aspart (Novolog) 0 unit SC Q6 [facility]; Protocol Last Admin: 09/18/18 06:44 Dose: Not Given Ondansetron HCl (Zofran Inj) 4 mg IVP BID PRN PRN Reason: Nausea/Vomiting Pneumococcal Polyvalent Vaccine (Pneumovax 23 Vaccine) 0.5 ml IM .ONCE ONE Stop: 09/19/18 14:01 Trazodone HCl (Desyrel) 25 mg PO HS [facility] Last Admin: 09/17/18 22:29 Dose: 25 mg - Labs Labs: 09/17/18 10:58 09/17/18 10:58 PT 14.8 SECONDS (9.7-12.2) H 09/17/18 10:58 INR 1.4 09/17/18 10:58 APTT 31.0 SECONDS (21-34) 09/17/18 10:58 - Constitutional Appears: Non-toxic, No Acute Distress, Cachectic, Chronically Ill - Head Exam Head Exam: ATRAUMATIC, NORMAL INSPECTION, NORMOCEPHALIC - Eye Exam Eye Exam: EOMI, Normal appearance, PERRL - ENT Exam ENT Exam: Mucous Membranes Dry Additional comments: Trach - Respiratory Exam Respiratory Exam: Rhonchi, NORMAL BREATHING PATTERN - Cardiovascular Exam Cardiovascular Exam: REGULAR RHYTHM, RRR, +S1, +S2 - GI/Abdominal Exam GI & Abdominal Exam: Guarding, Soft, Tenderness, Normal Bowel Sounds. absent: Distended, Firm Additional comments: PEG in place with TTP above PEG - Rectal Exam Rectal Exam: Deferred - Extremities Exam Extremities Exam: Full ROM, Normal Inspection - Neurological Exam Neurological Exam: Alert, Awake, Oriented x3 - Psychiatric Exam Psychiatric exam: Anxious, Normal Mood - Skin Skin Exam: Dry, Intact, Normal Color, Warm Assessment and Plan - Assessment and Plan (Free Text) Assessment: 1. Syncopal episode/cyanotic 2. Abdominal Pain: PEG DISLODGED 3. Hx of rib fractures 4. Hx of Laryngeal Cancer s/p PEG Plan: -Continue supportive care -PEG dislodged and in anterior abdominal wall, not in stomach on CT scan likely pulled from fall -Will replace PEG at bedside today -NPO for except water/meds, until PEG replaced will place further orders on when to use PEG -Will continue to follow closely <Jorge Shepard - Last Filed: 09/18/18 14:01> Objective - Vital Signs/Intake and Output Vital Signs (last 24 hours): Temp Pulse Resp BP Pulse Ox 98.2 F 76 20 120/64 94 L 09/18/18 08:18 09/18/18 08:18 09/18/18 08:18 09/18/18 08:18 09/18/18 08:18 Intake and Output: 09/18/18 09/18/18 06:59 18:59 Output Total 550 Balance -550 - Medications Medications: Current Medications Acetaminophen (Tylenol 650mg/20.3ml Solution Ud) 650 mg GT Q6 PRN PRN Reason: Temperature Albuterol/Ipratropium (Duoneb 3 Mg/0.5 Mg (3 Ml) Ud) 3 ml IH RQ6 [facility] Last Admin: 09/18/18 13:39 Dose: 3 ml Heparin Sodium (Porcine) (Heparin) 5,000 units SC Q12 [facility] Piperacillin Sod/Tazobactam Sod (Zosyn 3.375 Gm Iv Premix) 3.375 gm in 50 mls @ 100 mls/hr IVPB Q8 [facility]; Protocol Last Admin: 09/18/18 13:42 Dose: 100 mls/hr Insulin Aspart (Novolog) 0 unit SC Q6 [facility]; Protocol Last Admin: 09/18/18 11:48 Dose: Not Given Ondansetron HCl (Zofran Inj) 4 mg IVP BID PRN PRN Reason: Nausea/Vomiting Pneumococcal Polyvalent Vaccine (Pneumovax 23 Vaccine) 0.5 ml IM .ONCE ONE Stop: 09/19/18 14:01 Trazodone HCl (Desyrel) 25 mg PO HS [facility] Last Admin: 09/17/18 22:29 Dose: 25 mg - Labs Labs: 09/17/18 10:58 09/17/18 10:58 PT 14.8 SECONDS (9.7-12.2) H 09/17/18 10:58 INR 1.4 09/17/18 10:58 APTT 31.0 SECONDS (21-34) 09/17/18 10:58 Attending/Attestation - Attestation I have personally seen and examined this patient.: Yes I have fully participated in the care of the patient.: Yes I have reviewed all pertinent clinical information, including history, physical exam and plan: Yes Notes (Text): 09/18/18 13:45 I have seen and examined patient with GI fellow. No acute events overnight, he is seen resting in bed comfortably. He continues to endorse LUQ abdominal pain but denies nausea, vomiting, fever/chills. Review of vitals from today are normal. Laryngeal cancer s/p tracheostomy and PEG placement Syncope Abdominal pain CT imaging reviewed by me showing dislodged PEG tube - Clear liquid diet as tolerated - Continue with antibiotic therapy - Bedside tube exchange attempted, new 18F gastrostomy tube could not be advanced through existing lumen. Therefore, will plan for endoscopic gastrostomy tube placement tomorrow. NPO after midnight.
--- NOTE | 2018-09-18 11:10 | CARD ---
APPROVED REPORT Date of service: 09/17/2018 EKG Measurement Heart [id number] <Conclusion> Normal sinus rhythm Right bundle branch block Abnormal ECG
--- NOTE | 2018-09-18 11:18 | US ---
Date of service: 09/18/2018 PROCEDURE: Ultrasound of the kidneys/urinary bladder HISTORY: urinary retention COMPARISON: CT abdomen and pelvis without IV contrast performed 09/17/18. TECHNIQUE: Sonogram of the kidneys and urinary bladder. FINDINGS: RIGHT KIDNEY: Measures: 12.2 x 4.5 x 5.1 cm. No obstructing calculus, hydronephrosis, or renal cyst identified. LEFT KIDNEY: Measures: 12.0 x 5.0 x 5.5 cm. No obstructing calculus, hydronephrosis, or renal cyst identified. 3 mm nonobstructing right lower pole calculus demonstrated on CT is not well visualized on the submitted images. OTHER FINDINGS: Prevoid urinary bladder measures 8.4 x 9.2 x 9.2 cm, calculated volume 369.6 mL. The patient was unable to void. Bilateral ureteral jets are identified. IMPRESSION: No obstructing calculus, hydronephrosis, or renal cyst identified. Prevoid urinary bladder measures 8.4 x 9.2 x 9.2 cm, calculated volume 369.6 mL. The patient was unable to void.
[2018-09-18] MEDS: POLYETHYLENE GLYCOL 3350 17 GM/Dose PACKET PO SCH (15:15)
--- NOTE | 2018-09-18 15:15 | CP.PCM.PN ---
Subjective - Date & Time of Evaluation Date of Evaluation: 09/18/18 - Subjective Subjective: patient examined today at bedside patient denies nausea, vomiting, fever, diarrhea, shortness of breath, dizziness Objective - Vital Signs/Intake and Output Vital Signs (last 24 hours): Temp Pulse Resp BP Pulse Ox 98.2 F 76 20 120/64 94 L 09/18/18 08:18 09/18/18 08:18 09/18/18 08:18 09/18/18 08:18 09/18/18 08:18 Intake and Output: 09/18/18 09/18/18 06:59 18:59 Output Total 550 Balance -550 - Medications Medications: Current Medications Acetaminophen (Tylenol 650mg/20.3ml Solution Ud) 650 mg GT Q6 PRN PRN Reason: Temperature Albuterol/Ipratropium (Duoneb 3 Mg/0.5 Mg (3 Ml) Ud) 3 ml IH RQ6 [facility] Last Admin: 09/18/18 13:39 Dose: 3 ml Heparin Sodium (Porcine) (Heparin) 5,000 units SC Q12 [facility] Piperacillin Sod/Tazobactam Sod (Zosyn 3.375 Gm Iv Premix) 3.375 gm in 50 mls @ 100 mls/hr IVPB Q8 [facility]; Protocol Last Admin: 09/18/18 13:42 Dose: 100 mls/hr Insulin Aspart (Novolog) 0 unit SC Q6 [facility]; Protocol Last Admin: 09/18/18 11:48 Dose: Not Given Ondansetron HCl (Zofran Inj) 4 mg IVP BID PRN PRN Reason: Nausea/Vomiting Pneumococcal Polyvalent Vaccine (Pneumovax 23 Vaccine) 0.5 ml IM .ONCE ONE Stop: 09/19/18 14:01 Polyethylene Glycol (Miralax) 17 gm PO DAILY [facility] Trazodone HCl (Desyrel) 25 mg PO HS [facility] Last Admin: 09/17/18 22:29 Dose: 25 mg - Labs Labs: 09/17/18 10:58 09/17/18 10:58 PT 14.8 SECONDS (9.7-12.2) H 09/17/18 10:58 INR 1.4 09/17/18 10:58 APTT 31.0 SECONDS (21-34) 09/17/18 10:58 - Constitutional Appears: Well - Head Exam Head Exam: ATRAUMATIC, NORMAL INSPECTION, NORMOCEPHALIC Additional comments: tracheostomy present getting oxygen - Eye Exam Eye Exam: EOMI, Normal appearance, PERRL Pupil Exam: NORMAL ACCOMODATION, PERRL - ENT Exam ENT Exam: Mucous Membranes Moist, Normal Exam - Neck Exam Neck Exam: Full ROM, Normal Inspection. absent: Lymphadenopathy - Respiratory Exam Respiratory Exam: Decreased Breath Sounds - Cardiovascular Exam Cardiovascular Exam: REGULAR RHYTHM, +S1, +S2 - GI/Abdominal Exam GI & Abdominal Exam: Soft, Diminished Bowel Sounds - Rectal Exam Rectal Exam: Deferred - Neurological Exam Neurological Exam: Oriented x3 Assessment and Plan - Assessment and Plan (Free Text) Plan: plan discussed with patient and family member moderate complexity of care medications reviewed labs reviewed vitals reviewed desyrel duoneb heparin miralax novolog tylenol zofran inj zosyn
[2018-09-18] MEDS: Oxycodone/Acetaminophen 5/325 mg Tab PO PRN (15:22)
--- NOTE | 2018-09-18 16:47 | CP.PCM.CON ---
History of Present Illness - History of Present Illness History of Present Illness: Reason for consultation: Status post tracheostomy and shortness of breath 72-year-old male with history of laryngeal cancer status post tracheostomy and PEG insertion, COPD, CHF most transferred from skilled nursing after he was found on the floor in the bathroom with shortness of breath/cyanosis. Nurse started bagging the patient and did suctioning with improvement and was brought to the hospital. Review of Systems - Review of Systems Systems not reviewed;Unavailable: Other (Status post tracheostomy) Past Patient History - Infectious Disease Hx of Infectious Diseases: None - Past Medical History & Family History Past Medical History?: Yes - Past Social History Smoking Status: Current Some Days Smoker - CARDIAC Hx Cardiac Disorders: Yes Hx Congestive Heart Failure: Yes Hx Hypertension: Yes - PULMONARY Hx Chronic Obstructive Pulmonary Disease (COPD): Yes - NEUROLOGICAL Hx Neurological Disorder: No Hx Seizures: No Hx Transient Ischemic Attacks (TIA): No - HEENT Hx HEENT Problems: Yes - RENAL Hx Chronic Kidney Disease: No - ENDOCRINE/METABOLIC Hx Diabetes Mellitus Type 1: Yes - HEMATOLOGICAL/ONCOLOGICAL Hx Cancer: Yes (LARYNX) Other/Comment: + Trach - INTEGUMENTARY Hx Dermatological Problems: No - MUSCULOSKELETAL/RHEUMATOLOGICAL Hx Musculoskeletal Disorders: Yes Hx Falls: Yes Hx Fractures: Yes (left rib fx in december 2017) - GASTROINTESTINAL Hx Gastrointestinal Disorders: Yes Hx Gastroesophageal Reflux: Yes - GENITOURINARY/GYNECOLOGICAL Hx Genitourinary Disorders: No - PSYCHIATRIC Hx Psychophysiologic Disorder: Yes Hx Anxiety: Yes Hx Depression: Yes Hx Substance Use: No - SURGICAL HISTORY Hx Surgeries: Yes Other/Comment: TRACHEOTOMY - ANESTHESIA Hx Anesthesia: Yes Hx Anesthesia Reactions: No Hx Malignant Hyperthermia: No Meds Allergies/Adverse Reactions: Allergies Allergy/AdvReac Type Severity Reaction Status Date / Time No Known Allergies Allergy Verified 06/26/18 09:51 - Medications Medications: Current Medications Acetaminophen (Tylenol 650mg/20.3ml Solution Ud) 650 mg GT Q6 PRN PRN Reason: Temperature Albuterol/Ipratropium (Duoneb 3 Mg/0.5 Mg (3 Ml) Ud) 3 ml IH RQ6 [facility] Last Admin: 09/18/18 13:39 Dose: 3 ml Heparin Sodium (Porcine) (Heparin) 5,000 units SC Q12 [facility] Piperacillin Sod/Tazobactam Sod (Zosyn 3.375 Gm Iv Premix) 3.375 gm in 50 mls @ 100 mls/hr IVPB Q8 [facility]; Protocol Last Admin: 09/18/18 13:42 Dose: 100 mls/hr Insulin Aspart (Novolog) 0 unit SC Q6 [facility]; Protocol Last Admin: 09/18/18 11:48 Dose: Not Given Ondansetron HCl (Zofran Inj) 4 mg IVP BID PRN PRN Reason: Nausea/Vomiting Oxycodone/Acetaminophen (Percocet 5/325 Mg Tab) 1 tab PO Q6H PRN PRN Reason: Pain, severe (8-10) Stop: 09/21/18 15:16 Last Admin: 09/18/18 15:22 Dose: 1 tab Pneumococcal Polyvalent Vaccine (Pneumovax 23 Vaccine) 0.5 ml IM .ONCE ONE Stop: 09/19/18 14:01 Polyethylene Glycol (Miralax) 17 gm PO DAILY [facility] Last Admin: 09/18/18 15:15 Dose: 17 gm Trazodone HCl (Desyrel) 25 mg PO HS [facility] Last Admin: 09/17/18 22:29 Dose: 25 mg Physical Exam - Head Exam Head Exam: ATRAUMATIC - ENT Exam ENT Exam: Mucous Membranes Moist - Respiratory Exam Respiratory Exam: Decreased Breath Sounds Results - Vital Signs Recent Vital Signs: Last Vital Signs Temp 97.2 F L 09/18/18 15:51 Pulse 80 09/18/18 15:51 Resp 20 09/18/18 15:51 BP 134/63 09/18/18 15:51 Pulse Ox 96 09/18/18 15:51 - Labs Result Diagrams: 09/19/18 07:32 09/19/18 07:32 Labs: Laboratory Results - last 24 hr 09/18/18 09/18/18 09/18/18 00:32 00:38 06:18 POC Glucose (mg/dL) 136 H 159 H Urine Color Yellow Urine Clarity Hazy Urine pH 7.0 Ur Specific Usk 1.011 Urine Protein Negative Urine Glucose (UA) 1+ H Urine Ketones Negative Urine Blood 2+ H Urine Nitrate Negative Urine Bilirubin Negative Urine Urobilinogen Normal Ur Leukocyte Esterase Neg Urine WBC (Auto) 2 Urine RBC (Auto) 38 H Ur Squamous Epith Cells < 1 Hyaline Casts 0-2 09/18/18 16:05 POC Glucose (mg/dL) 190 H Urine Color Urine Clarity Urine pH Ur Specific Usk Urine Protein Urine Glucose (UA) Urine Ketones Urine Blood Urine Nitrate Urine Bilirubin Urine Urobilinogen Ur Leukocyte Esterase Urine WBC (Auto) Urine RBC (Auto) Ur Squamous Epith Cells Hyaline Casts Assessment & Plan (1) Chronic respiratory failure Status: Acute Comment: symptoms most likely secondary to mucous plug. continue nebulizer treatment and Mucomyst. 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
[2018-09-18] MEDS: traZODone 25 mg Tab PO SCH (21:16)
[2018-09-19] MEDS: (Novolog) Insulin Aspart, Recombinant 100 u/ml 10 ml vial SC SCH ×4 (00:32→17:26)
[2018-09-19] MEDS: Albuterol-Ipratrop 3 mg / 0.5 (3 ml) UD IH SCH ×4 (01:09→20:14)
[2018-09-19] MEDS: Piperacill/Tazo 3.375gm in Dex 3.375 GM/50 ML BAG IVPB SCH ×2 (05:56→21:34)
[2018-09-19] MEDS: Oxycodone/Acetaminophen 5/325 mg Tab PO PRN ×3 (06:01→19:17)
[2018-09-19 07:40] LABS: BASO # 0.1 K/uL (0.0-0.2); BASO % 0.5 % (0.0-2.0); EOS # 0.1 K/uL (0.0-0.7); EOS % 1.1 % (0.0-4.0); HEMOGLOBIN 10.1 g/dL (12.0-18.0); LYMPH # 0.4 K/uL (1.0-4.3); LYMPH % 3.5 % (20.0-40.0); MEAN CELL VOLUME 79.9 fL (80.0-94.0); MEAN CORPUSCULAR HEMOGLOBIN 27.4 pg (27.0-31.0); MEAN CORPUSCULAR HGB CONC 34.3 g/dL (33.0-37.0); MEAN PLATELET VOLUME 7.4 fL (7.2-11.7); MONO # 0.7 K/uL (0.0-0.8); MONO % 6.2 % (0.0-10.0); NEUT # 9.5 K/uL (1.8-7.0); NEUT % 88.7 % (50.0-75.0); PLATELET COUNT 258 K/uL (130-400); RBC 3.69 Mil/uL (4.40-5.90); RED CELL DISTRIBUTION WIDTH 14.3 % (11.5-14.5); WHITE BLOOD COUNT 10.7 K/uL (4.8-10.8)
[2018-09-19 07:58] LABS: INR 1.4; PROTHROMBIN TIME 14.9 SECONDS (9.7-12.2)
[2018-09-19 08:10] LABS: ALB/GLOB RATIO 0.9 (1.0-2.1); ALBUMIN 3.3 g/dL (3.5-5.0); ALT/SGPT 14 U/L (21-72); AST/SGOT 34 U/L (17-59); BLOOD UREA NITROGEN 20 mg/dL (9-20); GFR NON-AFRICAN AMERICAN 60
[2018-09-19 08:14] LABS: EOSINOPHIL 1 % (0-4); HYPOCHROMIC SLIGHT; LYMPHOCYTE 4 % (20-40); MONOCYTE 4 % (0-10); NEUTROPHIL 91 % (50-75); PLATELET ESTIMATE NORMAL (NORMAL); TOTAL CELLS COUNTED 100
[2018-09-19] MEDS: POLYETHYLENE GLYCOL 3350 17 GM/Dose PACKET PO SCH (09:26)
[2018-09-19] MEDS ORDERED: Lactated Ringer's 500 ML IV ONE (11:53)
[2018-09-19] MEDS ORDERED: Etomidate 20 mg/10ml Inj IV ONE (11:55)
[2018-09-19] MEDS ORDERED: Propofol 10 mg/ml Inj (20 ML) ONE (11:56)
[2018-09-19] MEDS ORDERED: Pneumococcal 23-Valent Vaccine IM ONE (14:00)
--- NOTE | 2018-09-19 17:37 | CP.PCM.PN ---
Subjective - Date & Time of Evaluation Date of Evaluation: 09/19/18 Time of Evaluation: 17:00 - Subjective Subjective: Patient seen and examined Complaining of pain left side of the chest wall Denies shortness of breath Afebrile Continue nebulizer treatment Continue suctioning Pain medication Objective - Vital Signs/Intake and Output Vital Signs (last 24 hours): Temp Pulse Resp BP Pulse Ox 98.5 F 76 20 131/66 98 09/19/18 15:00 09/19/18 15:00 09/19/18 15:00 09/19/18 15:00 09/19/18 15:00 Intake and Output: 09/19/18 09/19/18 06:59 18:59 Output Total 600 650 Balance -600 -650 - Medications Medications: Current Medications Acetaminophen (Tylenol 650mg/20.3ml Solution Ud) 650 mg GT Q6 PRN PRN Reason: Temperature Albuterol/Ipratropium (Duoneb 3 Mg/0.5 Mg (3 Ml) Ud) 3 ml IH RQ6 [facility] Last Admin: 09/19/18 14:07 Dose: 3 ml Heparin Sodium (Porcine) (Heparin) 5,000 units SC Q12 [facility] Last Admin: 09/19/18 09:26 Dose: Not Given Piperacillin Sod/Tazobactam Sod (Zosyn 3.375 Gm Iv Premix) 3.375 gm in 50 mls @ 100 mls/hr IVPB Q8 [facility]; Protocol Last Admin: 09/19/18 05:56 Dose: 100 mls/hr Insulin Aspart (Novolog) 0 unit SC Q6 [facility]; Protocol Last Admin: 09/19/18 17:26 Dose: Not Given Ondansetron HCl (Zofran Inj) 4 mg IVP BID PRN PRN Reason: Nausea/Vomiting Last Admin: 09/19/18 13:45 Dose: 4 mg Oxycodone/Acetaminophen (Percocet 5/325 Mg Tab) 1 tab PO Q6H PRN PRN Reason: Pain, severe (8-10) Stop: 09/21/18 15:16 Last Admin: 09/19/18 13:45 Dose: 1 tab Polyethylene Glycol (Miralax) 17 gm PO DAILY [facility] Last Admin: 09/19/18 09:26 Dose: Not Given Trazodone HCl (Desyrel) 25 mg PO HS [facility] Last Admin: 09/18/18 21:16 Dose: 25 mg - Labs Labs: 09/19/18 07:32 09/19/18 07:32 PT 14.9 SECONDS (9.7-12.2) H 09/19/18 07:32 INR 1.4 09/19/18 07:32 APTT 31.0 SECONDS (21-34) 09/17/18 10:58 Assessment and Plan (1) Chronic respiratory failure Status: Acute (2) COPD (chronic obstructive pulmonary disease) Status: Acute (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
[2018-09-19] MEDS ORDERED: Potassium Chloride 20 mEq ER Tab PO STA (18:20)
[2018-09-19] MEDS ORDERED: Oxycodone/Acetaminophen 5/325 mg Tab PO PRN (19:03)
--- NOTE | 2018-09-19 20:33 | CP.PCM.PN ---
Subjective - Date & Time of Evaluation Date of Evaluation: 09/19/18 - Subjective Subjective: patient examined today no nausea no vomitng no dizziness no diarrhea no fever no shortness of breath Objective - Vital Signs/Intake and Output Vital Signs (last 24 hours): Temp Pulse Resp BP Pulse Ox 98.5 F 94 H 20 143/71 98 09/19/18 15:00 09/19/18 19:20 09/19/18 15:00 09/19/18 19:20 09/19/18 15:00 Intake and Output: 09/19/18 09/20/18 18:59 06:59 Output Total 650 Balance -650 - Medications Medications: Current Medications Acetaminophen (Tylenol 650mg/20.3ml Solution Ud) 650 mg GT Q6 PRN PRN Reason: Temperature Albuterol/Ipratropium (Duoneb 3 Mg/0.5 Mg (3 Ml) Ud) 3 ml IH RQ6 [facility] Last Admin: 09/19/18 20:14 Dose: 3 ml Alprazolam (Xanax) 0.5 mg PO BID [facility] Last Admin: 09/19/18 19:17 Dose: 0.5 mg Heparin Sodium (Porcine) (Heparin) 5,000 units SC Q12 [facility] Last Admin: 09/19/18 09:26 Dose: Not Given Piperacillin Sod/Tazobactam Sod (Zosyn 3.375 Gm Iv Premix) 3.375 gm in 50 mls @ 100 mls/hr IVPB Q8 [facility]; Protocol Last Admin: 09/19/18 05:56 Dose: 100 mls/hr Insulin Aspart (Novolog) 0 unit SC Q6 [facility]; Protocol Last Admin: 09/19/18 17:26 Dose: Not Given Ondansetron HCl (Zofran Inj) 4 mg IVP BID PRN PRN Reason: Nausea/Vomiting Last Admin: 09/19/18 13:45 Dose: 4 mg Oxycodone HCl (Oxycodone Immediate Release Tab) 30 mg PO Q12H [facility] Oxycodone/Acetaminophen (Percocet 5/325 Mg Tab) 2 tab PO Q4H PRN PRN Reason: Pain, moderate (4-7) Stop: 09/22/18 19:00 Last Admin: 09/19/18 19:17 Dose: 2 tab Oxycodone/Acetaminophen (Percocet 5/325 Mg Tab) 1 tab PO Q6H PRN PRN Reason: Pain, Mild (1-3) Stop: 09/21/18 15:16 Polyethylene Glycol (Miralax) 17 gm PO DAILY [facility] Last Admin: 09/19/18 09:26 Dose: Not Given Trazodone HCl (Desyrel) 25 mg PO HS [facility] Last Admin: 09/18/18 21:16 Dose: 25 mg - Labs Labs: 09/19/18 07:32 09/19/18 07:32 PT 14.9 SECONDS (9.7-12.2) H 09/19/18 07:32 INR 1.4 09/19/18 07:32 APTT 31.0 SECONDS (21-34) 09/17/18 10:58 - Constitutional Appears: Well - Head Exam Head Exam: ATRAUMATIC, NORMAL INSPECTION, NORMOCEPHALIC Additional comments: tracheostomy present getting oxygen - Eye Exam Eye Exam: EOMI, Normal appearance, PERRL Pupil Exam: NORMAL ACCOMODATION, PERRL - ENT Exam ENT Exam: Mucous Membranes Moist, Normal Exam - Neck Exam Neck Exam: Full ROM, Normal Inspection. absent: Lymphadenopathy - Respiratory Exam Respiratory Exam: Decreased Breath Sounds - Cardiovascular Exam Cardiovascular Exam: REGULAR RHYTHM, +S1, +S2 - GI/Abdominal Exam GI & Abdominal Exam: Soft, Diminished Bowel Sounds - Rectal Exam Rectal Exam: Deferred - Neurological Exam Neurological Exam: Oriented x3 Assessment and Plan - Assessment and Plan (Free Text) Plan: plan discussed with patient moderate complexity of care medications reviewed labs reviewed vitals reviewed desyrel duoneb heparin miralax novolog tylenol zofran inj zosyn
[2018-09-19] MEDS: traZODone 25 mg Tab PO SCH (21:34)
[2018-09-19] MEDS: oxyCODONE 30 mg Immediate Release Tab PO SCH (21:34)
[2018-09-20] MEDS: (Novolog) Insulin Aspart, Recombinant 100 u/ml 10 ml vial SC SCH ×4 (00:26→18:37)
[2018-09-20] MEDS: Albuterol-Ipratrop 3 mg / 0.5 (3 ml) UD IH SCH ×4 (02:33→20:27)
[2018-09-20] MEDS: Piperacill/Tazo 3.375gm in Dex 3.375 GM/50 ML BAG IVPB SCH ×3 (05:36→22:09)
--- NOTE | 2018-09-20 09:09 | CP.PCM.PN ---
<ClydeNereida - Last Filed: 09/20/18 09:07> Subjective - Date & Time of Evaluation Date of Evaluation: 09/20/18 Time of Evaluation: 09:00 - Subjective Subjective: GI Fellow PGY5 Progress Note Pt seen and evaluated at bedside, pt eating full liquids with no issues. Per nursing no complaints. Pt reports mild discomfort around left anterior ribs. ROS: A 12pt ROS was negative except as above. Objective - Vital Signs/Intake and Output Vital Signs (last 24 hours): Temp Pulse Resp BP Pulse Ox 99.2 F 88 20 144/70 95 09/20/18 08:41 09/20/18 08:41 09/20/18 08:41 09/20/18 08:41 09/20/18 08:41 Intake and Output: 09/20/18 09/20/18 06:59 18:59 Intake Total 50 Output Total 650 Balance -600 - Medications Medications: Current Medications Acetaminophen (Tylenol 650mg/20.3ml Solution Ud) 650 mg GT Q6 PRN PRN Reason: Temperature Albuterol/Ipratropium (Duoneb 3 Mg/0.5 Mg (3 Ml) Ud) 3 ml IH RQ6 [facility] Last Admin: 09/20/18 02:33 Dose: 3 ml Alprazolam (Xanax) 0.5 mg PO BID [facility] Last Admin: 09/19/18 19:17 Dose: 0.5 mg Heparin Sodium (Porcine) (Heparin) 5,000 units SC Q12 [facility] Last Admin: 09/19/18 21:34 Dose: 5,000 units Piperacillin Sod/Tazobactam Sod (Zosyn 3.375 Gm Iv Premix) 3.375 gm in 50 mls @ 100 mls/hr IVPB Q8 [facility]; Protocol Last Admin: 09/20/18 05:36 Dose: 100 mls/hr Insulin Aspart (Novolog) 0 unit SC Q6 [facility]; Protocol Last Admin: 09/20/18 06:51 Dose: 2 unit Ondansetron HCl (Zofran Inj) 4 mg IVP BID PRN PRN Reason: Nausea/Vomiting Last Admin: 09/19/18 13:45 Dose: 4 mg Oxycodone HCl (Oxycodone Immediate Release Tab) 30 mg PO Q12H [facility] Last Admin: 05/03/19 21:34 Dose: 30 mg Oxycodone/Acetaminophen (Percocet 5/325 Mg Tab) 2 tab PO Q4H PRN PRN Reason: Pain, moderate (4-7) Stop: 09/22/18 19:00 Last Admin: 09/19/18 19:17 Dose: 2 tab Oxycodone/Acetaminophen (Percocet 5/325 Mg Tab) 1 tab PO Q6H PRN PRN Reason: Pain, Mild (1-3) Stop: 09/21/18 15:16 Polyethylene Glycol (Miralax) 17 gm PO DAILY [facility] Last Admin: 09/19/18 09:26 Dose: Not Given Trazodone HCl (Desyrel) 25 mg PO HS [facility] Last Admin: 09/19/18 21:34 Dose: 25 mg - Labs Labs: 09/19/18 07:32 09/19/18 07:32 PT 14.9 SECONDS (9.7-12.2) H 09/19/18 07:32 INR 1.4 09/19/18 07:32 APTT 31.0 SECONDS (21-34) 09/17/18 10:58 - Constitutional Appears: Non-toxic, No Acute Distress, Cachectic, Chronically Ill - Head Exam Head Exam: ATRAUMATIC, NORMAL INSPECTION, NORMOCEPHALIC - Eye Exam Eye Exam: EOMI, Normal appearance, PERRL - ENT Exam ENT Exam: Mucous Membranes Moist Additional comments: trach , eating full liquids this am - Respiratory Exam Respiratory Exam: Clear to Ausculation Bilateral, NORMAL BREATHING PATTERN - Cardiovascular Exam Cardiovascular Exam: REGULAR RHYTHM, RRR, +S1, +S2 - GI/Abdominal Exam GI & Abdominal Exam: Soft, Tenderness, Normal Bowel Sounds. absent: Distended, Firm, Guarding Additional comments: PEG site clean, dry and intact-loosened bumper from 2-->3 - Rectal Exam Rectal Exam: Deferred - Extremities Exam Extremities Exam: Full ROM, Normal Inspection - Neurological Exam Neurological Exam: Alert, Awake, Oriented x3 - Psychiatric Exam Psychiatric exam: Anxious - Skin Skin Exam: Dry, Intact, Normal Color, Warm Assessment and Plan - Assessment and Plan (Free Text) Assessment: 1. Syncopal episode/cyanotic 2. Abdominal Pain: PEG DISLODGED s/p new PEG placed POD#1 3. Hx of rib fractures 4. Hx of Laryngeal Cancer s/p PEG Plan: -Continue supportive care -PEG dislodged and in anterior abdominal wall, not in stomach on CT scan likely pulled from fall -s/p EGD and new PEG placed 09/19/18, unable to replace at bedside, PEG bumper loosed from 2->3 ailin -Can use PEG today for TF, can advance to pureed diet by mouth as patient was taking at CT -Please call with any questions or concerns <Jorge Shepard - Last Filed: 09/20/18 10:34> Objective - Vital Signs/Intake and Output Vital Signs (last 24 hours): Temp Pulse Resp BP Pulse Ox 99.2 F 88 20 144/70 95 09/20/18 08:41 09/20/18 08:41 09/20/18 08:41 09/20/18 08:41 09/20/18 08:41 Intake and Output: 09/20/18 09/20/18 06:59 18:59 Intake Total 50 Output Total 650 Balance -600 - Medications Medications: Current Medications Acetaminophen (Tylenol 650mg/20.3ml Solution Ud) 650 mg GT Q6 PRN PRN Reason: Temperature Albuterol/Ipratropium (Duoneb 3 Mg/0.5 Mg (3 Ml) Ud) 3 ml IH RQ6 [facility] Last Admin: 09/20/18 08:45 Dose: 3 ml Alprazolam (Xanax) 0.5 mg PO BID [facility] Last Admin: 09/20/18 09:46 Dose: 0.5 mg Heparin Sodium (Porcine) (Heparin) 5,000 units SC Q12 [facility] Last Admin: 09/20/18 09:47 Dose: 5,000 units Piperacillin Sod/Tazobactam Sod (Zosyn 3.375 Gm Iv Premix) 3.375 gm in 50 mls @ 100 mls/hr IVPB Q8 [facility]; Protocol Last Admin: 09/20/18 05:36 Dose: 100 mls/hr Insulin Aspart (Novolog) 0 unit SC Q6 [facility]; Protocol Last Admin: 09/20/18 06:51 Dose: 2 unit Ondansetron HCl (Zofran Inj) 4 mg IVP BID PRN PRN Reason: Nausea/Vomiting Last Admin: 09/19/18 13:45 Dose: 4 mg Oxycodone HCl (Oxycodone Immediate Release Tab) 30 mg PO Q12H [facility] Last Admin: 09/20/18 09:46 Dose: 30 mg Oxycodone/Acetaminophen (Percocet 5/325 Mg Tab) 2 tab PO Q4H PRN PRN Reason: Pain, moderate (4-7) Stop: 09/22/18 19:00 Last Admin: 09/19/18 19:17 Dose: 2 tab Oxycodone/Acetaminophen (Percocet 5/325 Mg Tab) 1 tab PO Q6H PRN PRN Reason: Pain, Mild (1-3) Stop: 09/21/18 15:16 Polyethylene Glycol (Miralax) 17 gm PO DAILY [facility] Last Admin: 09/20/18 09:47 Dose: 17 gm Trazodone HCl (Desyrel) 25 mg PO HS [facility] Last Admin: 09/19/18 21:34 Dose: 25 mg - Labs Labs: 09/19/18 07:32 09/19/18 07:32 PT 14.9 SECONDS (9.7-12.2) H 09/19/18 07:32 INR 1.4 09/19/18 07:32 APTT 31.0 SECONDS (21-34) 09/17/18 10:58 Attending/Attestation - Attestation I have personally seen and examined this patient.: Yes I have fully participated in the care of the patient.: Yes I have reviewed all pertinent clinical information, including history, physical exam and plan: Yes Notes (Text): 09/20/18 10:28 I have seen and examined patient with GI fellow. No acute events overnight, he is seen resting in bed comfortably. s/p PEG placement yesterday. Syncope Laryngeal cancer s/p PEG s/p traumatic fall with history of rib fracture PEG dislodgement s/p endoscopic replacement yesterday - Full liquid diet as tolerated - May begin tube feeds via PEG as tolerated - Flush tube with 30 cc water q 8 hours - No further planned GI intervention, will sign off case. Please reconsult as necessary, thank you.
[2018-09-20] MEDS: oxyCODONE 30 mg Immediate Release Tab PO SCH ×2 (09:46→22:08)
[2018-09-20] MEDS: POLYETHYLENE GLYCOL 3350 17 GM/Dose PACKET PO SCH (09:47)
[2018-09-20] MEDS: Oxycodone/Acetaminophen 5/325 mg Tab PO PRN ×2 (12:09→16:18)
--- NOTE | 2018-09-20 14:32 | CARD ---
APPROVED REPORT Date of service: 09/19/2018 EKG Measurement Heart [id number] <Conclusion> Normal sinus rhythm Right bundle branch block Abnormal ECG
--- NOTE | 2018-09-20 15:22 | CP.PCM.PN ---
Subjective - Date & Time of Evaluation Date of Evaluation: 09/20/18 - Subjective Subjective: patient examined today no nausea no vomiting no fever no dizziness no shortness of breath no diarrhea Objective - Vital Signs/Intake and Output Vital Signs (last 24 hours): Temp Pulse Resp BP Pulse Ox 99.2 F 88 20 144/70 95 09/20/18 08:41 09/20/18 10:58 09/20/18 08:41 09/20/18 08:41 09/20/18 08:41 Intake and Output: 09/20/18 09/20/18 06:59 18:59 Intake Total 50 Output Total 650 Balance -600 - Medications Medications: Current Medications Acetaminophen (Tylenol 650mg/20.3ml Solution Ud) 650 mg GT Q6 PRN PRN Reason: Temperature Albuterol/Ipratropium (Duoneb 3 Mg/0.5 Mg (3 Ml) Ud) 3 ml IH RQ6 [facility] Last Admin: 09/20/18 13:32 Dose: 3 ml Alprazolam (Xanax) 0.5 mg PO BID [facility] Last Admin: 09/20/18 09:46 Dose: 0.5 mg Heparin Sodium (Porcine) (Heparin) 5,000 units SC Q12 [facility] Last Admin: 09/20/18 09:47 Dose: 5,000 units Piperacillin Sod/Tazobactam Sod (Zosyn 3.375 Gm Iv Premix) 3.375 gm in 50 mls @ 100 mls/hr IVPB Q8 [facility]; Protocol Last Admin: 09/20/18 14:07 Dose: 100 mls/hr Insulin Aspart (Novolog) 0 unit SC Q6 [facility]; Protocol Last Admin: 09/20/18 12:10 Dose: 3 unit Ondansetron HCl (Zofran Inj) 4 mg IVP BID PRN PRN Reason: Nausea/Vomiting Last Admin: 09/19/18 13:45 Dose: 4 mg Oxycodone HCl (Oxycodone Immediate Release Tab) 30 mg PO Q12H [facility] Last Admin: 09/20/18 09:46 Dose: 30 mg Oxycodone/Acetaminophen (Percocet 5/325 Mg Tab) 2 tab PO Q4H PRN PRN Reason: Pain, moderate (4-7) Stop: 09/22/18 19:00 Last Admin: 09/20/18 12:09 Dose: 2 tab Oxycodone/Acetaminophen (Percocet 5/325 Mg Tab) 1 tab PO Q6H PRN PRN Reason: Pain, Mild (1-3) Stop: 09/21/18 15:16 Polyethylene Glycol (Miralax) 17 gm PO DAILY [facility] Last Admin: 09/20/18 09:47 Dose: 17 gm Trazodone HCl (Desyrel) 25 mg PO HS [facility] Last Admin: 09/19/18 21:34 Dose: 25 mg - Labs Labs: 09/19/18 07:32 09/19/18 07:32 PT 14.9 SECONDS (9.7-12.2) H 09/19/18 07:32 INR 1.4 09/19/18 07:32 APTT 31.0 SECONDS (21-34) 09/17/18 10:58 - Constitutional Appears: Well - Head Exam Head Exam: ATRAUMATIC, NORMAL INSPECTION, NORMOCEPHALIC Additional comments: tracheostomy present getting oxygen - Eye Exam Eye Exam: EOMI, Normal appearance, PERRL Pupil Exam: NORMAL ACCOMODATION, PERRL - ENT Exam ENT Exam: Mucous Membranes Moist, Normal Exam - Neck Exam Neck Exam: Full ROM, Normal Inspection. absent: Lymphadenopathy - Respiratory Exam Respiratory Exam: Decreased Breath Sounds - Cardiovascular Exam Cardiovascular Exam: Irregular Rhythm, REGULAR RHYTHM, +S1 - GI/Abdominal Exam GI & Abdominal Exam: Soft, Diminished Bowel Sounds - Rectal Exam Rectal Exam: Deferred - Neurological Exam Neurological Exam: Oriented x3 Assessment and Plan - Assessment and Plan (Free Text) Plan: plan discussed with patient moderate complexity of care medications reviewed labs reviewed vitals reviewed desyrel duoneb heparin miralax novolog tylenol zofran inj zosyn percocet xanax oxycodone IR
[2018-09-20] MEDS: traZODone 25 mg Tab PO SCH (22:08)
[2018-09-21] MEDS: (Novolog) Insulin Aspart, Recombinant 100 u/ml 10 ml vial SC SCH ×4 (00:30→18:00)
[2018-09-21] MEDS: Oxycodone/Acetaminophen 5/325 mg Tab PO PRN (05:55)
[2018-09-21] MEDS: Piperacill/Tazo 3.375gm in Dex 3.375 GM/50 ML BAG IVPB SCH ×4 (06:06→21:29)
[2018-09-21] MEDS: Albuterol-Ipratrop 3 mg / 0.5 (3 ml) UD IH SCH ×3 (08:10→20:26)
[2018-09-21] MEDS: POLYETHYLENE GLYCOL 3350 17 GM/Dose PACKET PO SCH (11:00)
[2018-09-21] MEDS: oxyCODONE 30 mg Immediate Release Tab PO SCH ×2 (11:53→21:28)
--- NOTE | 2018-09-21 13:50 | CP.PCM.PN ---
Subjective - Date & Time of Evaluation Date of Evaluation: 09/21/18 Time of Evaluation: 13:36 - Subjective Subjective: Pulmonary follow up, Covering Dr Chan The Patient was seen and examined at the bedside, Medical records reviewed, and management issues were discussed and formulated with the house staff. Events reviewed Reason for consultation: Status post tracheostomy and shortness of breath 72-year-old male with history of laryngeal cancer status post tracheostomy and PEG insertion, COPD, CHF [facility] he was found on the floor in the bathroom with shortness of breath/cyanosis. Nurse started bagging the patient and did suctioning with improvement and was brought to the hospital. He was admitted with Acute on Chronic respiratory failure most likely secondary to mucous plug. Patient is comfortable, in no apparent distress Breathing much better Saturation 95% on TC Afebrile Continue nebulizer treatment and Mucomyst. Pulmonary toilet Objective - Vital Signs/Intake and Output Vital Signs (last 24 hours): Temp Pulse Resp BP Pulse Ox 98.6 F 85 20 131/70 100 09/21/18 08:34 09/21/18 08:34 09/21/18 08:34 09/21/18 08:34 09/21/18 12:26 Intake and Output: 09/21/18 09/21/18 06:59 18:59 Intake Total 980 Output Total 650 Balance 330 - Medications Medications: Current Medications Acetaminophen (Tylenol 650mg/20.3ml Solution Ud) 650 mg GT Q6 PRN PRN Reason: Temperature Albuterol/Ipratropium (Duoneb 3 Mg/0.5 Mg (3 Ml) Ud) 3 ml IH RQ6 [facility] Last Admin: 09/21/18 08:10 Dose: 3 ml Alprazolam (Xanax) 0.5 mg PO BID [facility] Last Admin: 09/21/18 11:55 Dose: 0.5 mg Heparin Sodium (Porcine) (Heparin) 5,000 units SC Q12 [facility] Last Admin: 09/21/18 11:00 Dose: 5,000 units Piperacillin Sod/Tazobactam Sod (Zosyn 3.375 Gm Iv Premix) 3.375 gm in 50 mls @ 100 mls/hr IVPB Q8 [facility]; Protocol Last Admin: 09/21/18 06:06 Dose: 100 mls/hr Insulin Aspart (Novolog) 0 unit SC Q6 [facility]; Protocol Last Admin: 09/21/18 13:05 Dose: 2 unit Ondansetron HCl (Zofran Inj) 4 mg IVP BID PRN PRN Reason: Nausea/Vomiting Last Admin: 09/19/18 13:45 Dose: 4 mg Oxycodone HCl (Oxycodone Immediate Release Tab) 30 mg PO Q12H [facility] Last Admin: 09/21/18 11:53 Dose: 30 mg Oxycodone/Acetaminophen (Percocet 5/325 Mg Tab) 2 tab PO Q4H PRN PRN Reason: Pain, moderate (4-7) Stop: 09/22/18 19:00 Last Admin: 09/21/18 05:55 Dose: 2 tab Oxycodone/Acetaminophen (Percocet 5/325 Mg Tab) 1 tab PO Q6H PRN PRN Reason: Pain, Mild (1-3) Stop: 09/21/18 15:16 Polyethylene Glycol (Miralax) 17 gm PO DAILY [facility] Last Admin: 09/21/18 11:00 Dose: 17 gm Trazodone HCl (Desyrel) 25 mg PO HS [facility] Last Admin: 09/20/18 22:08 Dose: 25 mg - Labs Labs: 09/19/18 07:32 09/19/18 07:32 PT 14.9 SECONDS (9.7-12.2) H 09/19/18 07:32 INR 1.4 09/19/18 07:32 APTT 31.0 SECONDS (21-34) 09/17/18 10:58 - Constitutional Appears: Well, Non-toxic - Head Exam Head Exam: ATRAUMATIC, NORMAL INSPECTION - Eye Exam Eye Exam: EOMI, Normal appearance, PERRL Pupil Exam: NORMAL ACCOMODATION - ENT Exam ENT Exam: Mucous Membranes Moist - Neck Exam Neck Exam: Full ROM - Respiratory Exam Respiratory Exam: Decreased Breath Sounds, Rhonchi. absent: Accessory Muscle Use, Chest Wall Tenderness, Rales, Wheezes - Cardiovascular Exam Cardiovascular Exam: REGULAR RHYTHM, +S1, +S2. absent: Murmur - GI/Abdominal Exam GI & Abdominal Exam: Soft, Normal Bowel Sounds. absent: Tenderness Assessment and Plan (1) Leucocytosis Status: Acute (2) Sepsis Status: Acute (3) Aspiration pneumonia Status: Acute (4) COPD (chronic obstructive pulmonary disease) Status: Acute (5) Chronic respiratory failure Status: Acute
--- NOTE | 2018-09-21 16:02 | CP.PCM.PN ---
Subjective - Date & Time of Evaluation Date of Evaluation: 09/21/18 - Subjective Subjective: patient examined today at bedside no nausea no vomitng no diarrhea no dizziness no fever no shortness of breath Objective - Vital Signs/Intake and Output Vital Signs (last 24 hours): Temp Pulse Resp BP Pulse Ox 98.6 F 85 20 131/70 100 09/21/18 08:34 09/21/18 08:34 09/21/18 08:34 09/21/18 08:34 09/21/18 12:26 Intake and Output: 09/21/18 09/21/18 06:59 18:59 Intake Total 980 Output Total 650 Balance 330 - Medications Medications: Current Medications Acetaminophen (Tylenol 650mg/20.3ml Solution Ud) 650 mg GT Q6 PRN PRN Reason: Temperature Albuterol/Ipratropium (Duoneb 3 Mg/0.5 Mg (3 Ml) Ud) 3 ml IH RQ6 [facility] Last Admin: 09/21/18 14:02 Dose: 3 ml Alprazolam (Xanax) 0.5 mg PO BID [facility] Last Admin: 09/21/18 11:55 Dose: 0.5 mg Heparin Sodium (Porcine) (Heparin) 5,000 units SC Q12 [facility] Last Admin: 09/21/18 11:00 Dose: 5,000 units Piperacillin Sod/Tazobactam Sod (Zosyn 3.375 Gm Iv Premix) 3.375 gm in 50 mls @ 100 mls/hr IVPB Q8 [facility]; Protocol Last Admin: 09/21/18 14:30 Dose: 100 mls/hr Insulin Aspart (Novolog) 0 unit SC Q6 [facility]; Protocol Last Admin: 09/21/18 13:05 Dose: 2 unit Ondansetron HCl (Zofran Inj) 4 mg IVP BID PRN PRN Reason: Nausea/Vomiting Last Admin: 09/19/18 13:45 Dose: 4 mg Oxycodone HCl (Oxycodone Immediate Release Tab) 30 mg PO Q12H [facility] Last Admin: 09/21/18 11:53 Dose: 30 mg Oxycodone/Acetaminophen (Percocet 5/325 Mg Tab) 2 tab PO Q4H PRN PRN Reason: Pain, moderate (4-7) Stop: 09/22/18 19:00 Last Admin: 09/21/18 05:55 Dose: 2 tab Polyethylene Glycol (Miralax) 17 gm PO DAILY [facility] Last Admin: 09/21/18 11:00 Dose: 17 gm Trazodone HCl (Desyrel) 25 mg PO HS [facility] Last Admin: 09/20/18 22:08 Dose: 25 mg - Labs Labs: 09/19/18 07:32 09/19/18 07:32 PT 14.9 SECONDS (9.7-12.2) H 09/19/18 07:32 INR 1.4 09/19/18 07:32 APTT 31.0 SECONDS (21-34) 09/17/18 10:58 - Constitutional Appears: Well - Head Exam Head Exam: ATRAUMATIC, NORMAL INSPECTION, NORMOCEPHALIC Additional comments: tracheostomy present getting oxygen - Eye Exam Eye Exam: EOMI, Normal appearance, PERRL Pupil Exam: NORMAL ACCOMODATION, PERRL - ENT Exam ENT Exam: Mucous Membranes Moist, Normal Exam - Neck Exam Neck Exam: Full ROM, Normal Inspection. absent: Lymphadenopathy - Respiratory Exam Respiratory Exam: Decreased Breath Sounds - Cardiovascular Exam Cardiovascular Exam: REGULAR RHYTHM, +S1, +S2 - GI/Abdominal Exam GI & Abdominal Exam: Soft, Diminished Bowel Sounds - Rectal Exam Rectal Exam: Deferred - Neurological Exam Neurological Exam: Oriented x3 Assessment and Plan - Assessment and Plan (Free Text) Plan: desyrel duoneb heparin miralax novolog tylenol zofran inj zosyn percocet xanax oxycodone IR plan discussed with patient moderate complexity of care medications reviewed labs reviewed vitals reviewed
[2018-09-21] MEDS: traZODone 25 mg Tab PO SCH (21:28)
[2018-09-22] MEDS: (Novolog) Insulin Aspart, Recombinant 100 u/ml 10 ml vial SC SCH ×3 (00:14→13:00)
[2018-09-22] MEDS: Albuterol-Ipratrop 3 mg / 0.5 (3 ml) UD IH SCH (01:10)
[2018-09-22 01:29] VITALS: RESP 20
[2018-09-22] MEDS: Piperacill/Tazo 3.375gm in Dex 3.375 GM/50 ML BAG IVPB SCH ×2 (05:23→13:27)
[2018-09-22] MEDS: oxyCODONE 30 mg Immediate Release Tab PO SCH (10:27)
[2018-09-22] MEDS: POLYETHYLENE GLYCOL 3350 17 GM/Dose PACKET PO SCH (10:28)
[2018-09-22 11:48] LABS: BASO % 0.3 % (0.0-2.0); EOS # 0.2 K/uL (0.0-0.7); EOS % 1.3 % (0.0-4.0); HEMOGLOBIN 9.4 g/dL (12.0-18.0); LYMPH # 0.4 K/uL (1.0-4.3); LYMPH % 3.3 % (20.0-40.0); MEAN CELL VOLUME 81.1 fL (80.0-94.0); MEAN CORPUSCULAR HEMOGLOBIN 26.9 pg (27.0-31.0); MEAN CORPUSCULAR HGB CONC 33.1 g/dL (33.0-37.0); MEAN PLATELET VOLUME 7.6 fL (7.2-11.7); MONO # 0.9 K/uL (0.0-0.8); MONO % 7.5 % (0.0-10.0); NEUT # 11.1 K/uL (1.8-7.0); NEUT % 87.6 % (50.0-75.0); PLATELET COUNT 248 K/uL (130-400); RED CELL DISTRIBUTION WIDTH 14.8 % (11.5-14.5); WHITE BLOOD COUNT 12.6 K/uL (4.8-10.8)
[2018-09-22 12:17] LABS: BANDS 3 % (0-2); LYMPHOCYTE 3 % (20-40); MONOCYTE 8 % (0-10); NEUTROPHIL 86 % (50-75); PLATELET ESTIMATE NORMAL (NORMAL); TOTAL CELLS COUNTED 100
[2018-09-22 12:20] LABS: BLOOD UREA NITROGEN 36 mg/dL (9-20); CALCIUM 9.2 mg/dl (8.6-10.4); GFR NON-AFRICAN AMERICAN 50
[2018-09-22] MEDS: Oxycodone/Acetaminophen 5/325 mg Tab PO PRN (13:34)
--- NOTE | 2018-09-22 15:04 | CP.PCM.PN ---
Subjective - Date & Time of Evaluation Date of Evaluation: 09/22/18 Time of Evaluation: 14:20 - Subjective Subjective: Patient seen today , comfortable , denies any complaints a febrile s/p peg tube replaced and tolerating feeding vss repeated today - and stable Objective - Vital Signs/Intake and Output Vital Signs (last 24 hours): Temp Pulse Resp BP Pulse Ox 98.3 F 75 20 118/64 95 09/22/18 07:20 09/22/18 08:18 09/22/18 07:20 09/22/18 07:20 09/22/18 07:20 Intake and Output: 09/22/18 09/22/18 06:59 18:59 Intake Total 540 Output Total 1700 650 Balance -1160 -650 - Medications Medications: Current Medications Acetaminophen (Tylenol 650mg/20.3ml Solution Ud) 650 mg GT Q6 PRN PRN Reason: Temperature Albuterol/Ipratropium (Duoneb 3 Mg/0.5 Mg (3 Ml) Ud) 3 ml IH RQ6 [facility] Last Admin: 09/22/18 01:10 Dose: 3 ml Alprazolam (Xanax) 0.5 mg PO BID [facility] Last Admin: 09/22/18 10:30 Dose: 0.5 mg Piperacillin Sod/Tazobactam Sod (Zosyn 3.375 Gm Iv Premix) 3.375 gm in 50 mls @ 100 mls/hr IVPB Q8 [facility]; Protocol Last Admin: 09/22/18 13:27 Dose: 100 mls/hr Insulin Aspart (Novolog) 0 unit SC Q6 [facility]; Protocol Last Admin: 09/22/18 13:00 Dose: 2 unit Ondansetron HCl (Zofran Inj) 4 mg IVP BID PRN PRN Reason: Nausea/Vomiting Last Admin: 09/19/18 13:45 Dose: 4 mg Oxycodone HCl (Oxycodone Immediate Release Tab) 30 mg PO Q12H [facility] Last Admin: 09/22/18 10:27 Dose: 30 mg Oxycodone/Acetaminophen (Percocet 5/325 Mg Tab) 2 tab PO Q4H PRN PRN Reason: Pain, moderate (4-7) Stop: 09/22/18 19:00 Last Admin: 09/22/18 13:34 Dose: 2 tab Polyethylene Glycol (Miralax) 17 gm PO DAILY [facility] Last Admin: 09/22/18 10:28 Dose: 17 gm Trazodone HCl (Desyrel) 25 mg PO HS [facility] Last Admin: 09/21/18 21:28 Dose: 25 mg - Labs Labs: 09/22/18 11:38 09/22/18 11:38 PT 14.9 SECONDS (9.7-12.2) H 09/19/18 07:32 INR 1.4 09/19/18 07:32 APTT 31.0 SECONDS (21-34) 09/17/18 10:58 Assessment and Plan - Assessment and Plan (Free Text) Assessment: A/P 72 yr old male with Patient has PMhx of laryngeal CA, s/p tracheostomy, s/p PEG tube placement, COPD, CHF, HTN, pneumonia. sent from [place] for evaluation s/p fall with resp. difficulty . Patient does not remember what happened to him this morning, pt was apparently found on the floor in the bathroom cyanotic and not breathing. Nurse apparently started bagging patient, and did suctions his trach and patient began breathing again. ADMITTED WITH feeding tube dislodgment following fall, and cellulitis at peg tube site s/p peg tube placement and tolerating feeding seen by Dr. Richard today, cleared fir discharge back to [facility] and Dr. Richard will follow the patient at [facility]
[2018-09-22 15:54] VITALS: BP 116/63; PULSE 81; TEMP 98.2; O2SAT 97
--- NOTE | 2018-09-22 20:54 | CP.PCM.DIS ---
Provider - Provider Date of Admission: 09/17/18 12:21 Attending physician: Jimmy Harry MD Consults: 09/17/18 16:39 Case Management Referral Routine Comment: Physician Instructions: Reason For Exam: Longterm resident Reason for Referral: Discharge Planning Social Work Referral Routine Comment: [place] resident Physician Instructions: Reason For Exam: [place] resident 09/17/18 22:42 Physician Consult Routine Comment: Consulting Provider: Benjei Chan Consulting Physician: Benjie Chan Reason for Consult: sob Time Spent in preparation of Discharge (in minutes): 20 Diagnosis - Discharge Diagnosis (1) Abdominal pain Status: Acute (2) Aspiration pneumonia Status: Acute (3) COPD (chronic obstructive pulmonary disease) Status: Acute (4) Chronic respiratory failure Status: Acute (5) Collapse Status: Acute (6) Congestive heart failure Status: Acute (7) Diabetes Status: Acute (8) History of tobacco use Status: Acute (9) Hospital-acquired pneumonia Status: Acute (10) Hyperglycemia Status: Acute (11) Hypertension Status: Acute (12) Laryngeal cancer Status: Acute (13) Leucocytosis Status: Acute (14) Leukocytosis Status: Acute (15) Pneumonia Status: Acute Priority: High (16) Prophylactic measure Status: Acute (17) Sepsis Status: Acute (18) Squamous cell carcinoma in situ Status: Acute (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 Priority: High (20) Throat mass Status: Acute (21) Tracheostomy dependent Status: Acute (22) Tracheostomy in place Status: Acute Priority: High (23) COPD (chronic obstructive pulmonary disease) Status: Chronic Priority: Medium (24) HTN (hypertension) Status: Chronic Priority: Medium (25) T2DM (type 2 diabetes mellitus) Status: Chronic Priority: Medium Hospital Course - Lab Results Lab Results: Micro Results 09/17/18 14:14 Blood Blood Culture - Final NO GROWTH AFTER 5 DAYS 09/17/18 14:14 Blood Gram Stain - Final TEST NOT PERFORMED 09/17/18 14:14 Blood Blood Culture - Final NO GROWTH AFTER 5 DAYS 09/17/18 14:14 Blood Gram Stain - Final TEST NOT PERFORMED Most Recent Lab Values WBC 12.6 K/uL (4.8-10.8) H 09/22/18 11:38 RBC 3.50 Mil/uL (4.40-5.90) L 09/22/18 11:38 Hgb 9.4 g/dL (12.0-18.0) L 09/22/18 11:38 Hct 28.4 % (35.0-51.0) L 09/22/18 11:38 MCV 81.1 fL (80.0-94.0) 09/22/18 11:38 MCH 26.9 pg (27.0-31.0) L 09/22/18 11:38 MCHC 33.1 g/dL (33.0-37.0) 09/22/18 11:38 RDW 14.8 % (11.5-14.5) H 09/22/18 11:38 Plt Count 248 K/uL (130-400) 09/22/18 11:38 MPV 7.6 fL (7.2-11.7) 09/22/18 11:38 Neut % (Auto) 87.6 % (50.0-75.0) H 09/22/18 11:38 Lymph % (Auto) 3.3 % (20.0-40.0) L 09/22/18 11:38 [place] % (Auto) 7.5 % (0.0-10.0) 09/22/18 11:38 Eos % (Auto) 1.3 % (0.0-4.0) 09/22/18 11:38 Baso % (Auto) 0.3 % (0.0-2.0) 09/22/18 11:38 Neut # (Auto) 11.1 K/uL (1.8-7.0) H 09/22/18 11:38 Lymph # (Auto) 0.4 K/uL (1.0-4.3) L 09/22/18 11:38 [place] # (Auto) 0.9 K/uL (0.0-0.8) H 09/22/18 11:38 Eos # (Auto) 0.2 K/uL (0.0-0.7) 09/22/18 11:38 Baso # (Auto) 0.0 K/uL (0.0-0.2) 09/22/18 11:38 Neutrophils % (Manual) 86 % (50-75) H 09/22/18 11:38 Band Neutrophils % 3 % (0-2) H 09/22/18 11:38 Lymphocytes % (Manual) 3 % (20-40) L 09/22/18 11:38 Monocytes % (Manual) 8 % (0-10) 09/22/18 11:38 Eosinophils % (Manual) 1 % (0-4) 09/19/18 07:32 Platelet Estimate Normal (NORMAL) 09/22/18 11:38 RBC Morphology Normal 09/22/18 11:38 Hypochromasia (manual) Slight 09/19/18 07:32 PT 14.9 SECONDS (9.7-12.2) H 09/19/18 07:32 INR 1.4 09/19/18 07:32 APTT 31.0 SECONDS (21-34) 09/17/18 10:58 Sodium 136 mmol/L (132-148) 09/22/18 11:38 Potassium 4.1 mmol/L (3.6-5.2) 09/22/18 11:38 Chloride 95 mmol/L (98-107) L 09/22/18 11:38 Carbon Dioxide 34 mmol/L (22-30) H 09/22/18 11:38 Anion Gap 11 (10-20) 09/22/18 11:38 BUN 36 mg/dL (9-20) H 09/22/18 11:38 Creatinine 1.4 mg/dL (0.8-1.5) 09/22/18 11:38 Est GFR ( Amer) > 60 09/22/18 11:38 Est GFR (Non-Af Amer) 50 09/22/18 11:38 POC Glucose (mg/dL) 186 mg/dL (65-110) H 09/22/18 11:03 Random Glucose 171 mg/dL (75-110) H 09/22/18 11:38 Calcium 9.2 mg/dl (8.6-10.4) 09/22/18 11:38 Magnesium 2.1 mg/dL (1.6-2.3) 09/22/18 11:38 Total Bilirubin 0.8 mg/dL (0.2-1.3) 09/19/18 07:32 AST 34 U/L (17-59) 09/19/18 07:32 ALT 14 U/L (21-72) L D 09/19/18 07:32 Alkaline Phosphatase 152 U/L (38-126) H 09/19/18 07:32 Total Creatine Kinase 26 U/L (55-170) L 09/17/18 10:58 CK-MB (Mass) 1.01 ng/mL (0.0-3.38) 09/17/18 10:58 Troponin I < 0.0120 ng/mL (0.00-0.120) 09/19/18 10:49 Total Protein 6.9 g/dL (6.3-8.3) 09/19/18 07:32 Albumin 3.3 g/dL (3.5-5.0) L 09/19/18 07:32 Globulin 3.6 gm/dL (2.2-3.9) 09/19/18 07:32 Albumin/Globulin Ratio 0.9 (1.0-2.1) L 09/19/18 07:32 Urine Color Yellow (YELLOW) 09/18/18 00:32 Urine Clarity Hazy (Clear) 09/18/18 00:32 Urine pH 7.0 (5.0-8.0) 09/18/18 00:32 Ur Specific [place] 1.011 (1.003-1.030) 09/18/18 00:32 Urine Protein Negative mg/dL (NEGATIVE) 09/18/18 00:32 Urine Glucose (UA) 1+ mg/dL (Normal) H 09/18/18 00:32 Urine Ketones Negative mg/dL (NEGATIVE) 09/18/18 00:32 Urine Blood 2+ (NEGATIVE) H 09/18/18 00:32 Urine Nitrate Negative (NEGATIVE) 09/18/18 00:32 Urine Bilirubin Negative (NEGATIVE) 09/18/18 00:32 Urine Urobilinogen Normal mg/dL (0.2-1.0) 09/18/18 00:32 Ur Leukocyte Esterase Neg Pura/uL (Negative) 09/18/18 00:32 Urine WBC (Auto) 2 /hpf (0-5) 09/18/18 00:32 Urine RBC (Auto) 38 /hpf (0-3) H 09/18/18 00:32 Ur Squamous Epith Cells < 1 /hpf (0-5) 09/18/18 00:32 Hyaline Casts 0-2 /lpf (0-2) 09/18/18 00:32 - Hospital Course Hospital Course: Admitted the patient's for a PEG tube malfunctioning status post PEG tube replaced tolerating the feeding patient's family does not want patients to be discharged I spoke to the family at length for possible urinary retention may be secondary to anesthesia versus any other etiology we will try to remove the catheter as an outpatient spoke to Jaquan who is the son AND ALSO spoke to the daughter who is also bedside patient received IV antibiotic is Zofran oxycodone started feeding WBC was 12.6 hematocrit was 9.4 family agreed eventually patient was [facility] had [facility] of [facility] CHF hypertension pneumonia Extensive discussion with the family Plan of care discussed Moderate to severe complexity of care Discharge Exam - Head Exam Head Exam: ATRAUMATIC, NORMAL INSPECTION - Eye Exam Eye Exam: EOMI, Normal appearance, PERRL Pupil Exam: NORMAL ACCOMODATION, PERRL Additional comments: tracehstomy present - Respiratory Exam Respiratory Exam: Decreased Breath Sounds, Clear to PA & Lateral - Cardiovascular Exam Cardiovascular Exam: REGULAR RHYTHM, +S1, +S2 - GI/Abdominal Exam GI & Abdominal Exam: Normal Bowel Sounds Additional comments: pefg tube present no redness - Rectal Exam Rectal Exam: Deferred - Neurological Exam Neurological exam: Oriented x3 Discharge Plan - Follow Up Plan Condition: STABLE Disposition: REHAB FACILITY/REHAB UNIT Instructions: Heart Failure, Adult (DC), Pneumonia, Adult (DC), Full Liquid Diet, Exacerbation of COPD (DC), Percutaneous Endoscopic Gastrostomy (DC), Leukocytosis (DC), Acute Abdominal Pain (DC), Acute Abdominal Pain (GEN) Additional Instructions: PEG tube feeding bolus feedings q 4 hourly start with 100 ml as tolerted [facility] continue with present medications PEG site clean with NS daily and dsd daily\ Please repeat blood work on Saturday - cbc. cmp peg site care daily Trach care PRN o2 via trach collar 35% humidified All other orders as per Dr. Richard Please do voiding trail starts Thrusday and patient voids without problem Discontinue vazquez if problem voiding re insert vazquez cath and Call Dr. Richard and urology consult as per Dr. Richard Referrals: Jose Harry MD [Staff Provider] -
== END 2018-09-22 16:57 | DRG 393 ==
LOC: C.ER 10:15 → C.6T 12:21
PROVIDERS: ADMIT Internal Medicine Nephrology; ATTEND Internal Medicine Nephrology
PROC: 0DJ08ZZ Inspection of Upper Intestinal Tract, Via Natural or Artificial Opening Endoscopic (ICD-10-PCS; 2018-09-19)
PROC: 0D20XUZ Change Feeding Device in Upper Intestinal Tract, External Approach (ICD-10-PCS; principal; 2018-09-19 11:55)
DX: Z43.1 Encounter for attention to gastrostomy (principal); J96.20 Acute and chronic respiratory failure, unspecified whether with hypoxia or hypercapnia; J69.0 Pneumonitis due to inhalation of food and vomit; K21.9 Gastro-esophageal reflux disease without esophagitis; T17.990A Other foreign object in respiratory tract, part unspecified in causing asphyxiation, initial encounter; I50.9 Heart failure, unspecified; I11.0 Hypertensive heart disease with heart failure; J43.9 Emphysema, unspecified; Z85.21 Personal history of malignant neoplasm of larynx; F17.210 Nicotine dependence, cigarettes, uncomplicated; Z79.4 Long term (current) use of insulin; Z91.81 History of falling; E10.65 Type 1 diabetes mellitus with hyperglycemia; J44.9 Chronic obstructive pulmonary disease, unspecified; R13.10 Dysphagia, unspecified; Z93.0 Tracheostomy status